=== PATIENT | male | born 1935 | race African-American/Black ===

== ENCOUNTER 2017-01-03 15:20 | Inpatient (IN) ==
[2017-01-03] MEDS ORDERED: ATROPINE 0.4 MG/1 ML VIAL ONE (16:18)
[2017-01-03] MEDS ORDERED: NALOXONE 0.4 MG/ML VIAL ONE (16:20)
[2017-01-03 16:42] LABS: Basophils % 0.6 % (0.0-0.8); Eosinophils # 0.1 10*3/uL (0.0-0.87); Eosinophils % 1.6 % (0.00-10.9); Hematocrit 44.1 VOL% (42.0-52.0); Hemoglobin 15.1 GM/DL (14.0-18.0); Immature Granulocytes % 0.3 %; Immature Granulocytes Absolute 0.01 #; Lymphocytes # 0.7 10*3/uL (1.4-4.0); Lymphocytes % 20.6 % (21.2-54.2); Mean Corpuscular HGB Conc 34.2 GM/DL (32-36); Mean Corpuscular Hemoglobin 32 PG (27-34); Mean Corpuscular Volume 92.6 FL (87-102); Mean Platelet Volume 10.4 FL (9.6-12.0); Monocytes # 0.3 10*3/uL (0.11-0.8); Monocytes % 9.7 % (1.7-12.7); Neutrophils # 2.2 10*3/uL (1.4-7.4); Neutrophils % 67.2 % (38.7-73.9); Platelet Count 155 T/CUMM (130-400); Red Blood Count 4.76 MC/CUMM (3.8-5.5); Red Cell Distribution Width 12.4 % (9.3-17.3); White Blood Count 3.2 T/CUMM (4-12)
[2017-01-03 16:53] LABS: INR 1.1; PT Patient Result 11.4 SECS; Partial Thromboplastin Time 28.2 SECS (0-40)
[2017-01-03 17:03] LABS: Alanine Aminotransferase 14 U/L (16-61); Albumin 3.2 G/DL (3.4-5.0); Alkaline Phosphatase 98 U/L (45-117); Aspartate Amino Transferase 17 U/L (0-37); Blood Urea Nitrogen 15 MG/DL (7-18); Calcium 9.2 MG/DL (8.5-10.1); Glucose 103 MG/DL (74-106); Osmolality,Calculated 277.5 MOS/KG (273-304); Potassium 3.9 MMOL/L (3.5-5.1); Sodium 139 MMOL/L (136-145)
[2017-01-03] MEDS ORDERED: ONDANSETRON 4 MG/2 ML VIAL IV PRN (20:49)
[2017-01-03] MEDS ORDERED: NIFEdipine 10 MG CAPSULE PO PRN (20:49)
[2017-01-03] MEDS: ENOXAPARIN 40 MG/0.4 ML SYRINGE SUBCUT SCH (21:10)
[2017-01-03 21:42] LABS: Apearance,Urine CLEAR (Clear); Bilirubin,Urine Negative (Negative); Blood, Urine Small mg/dL (Negative); Glucose,Urine (UA) Negative (Negative); Ketones,Urine Negative (Negative); Mucus,Urine Occasional /LPF (Occasional); Nitrite,Urine Negative (Negative); Protein,Urine Negative; RBC,Urine <1 /HPF (0-4); Urine Color Yellow (Yellow); WBC,Urine 1 /HPF (0-6)
[2017-01-03 21:59] LABS: Barbiturates Screen,Urine Negative (Negative); Benzodiazepines Screen,Urine Negative (Negative); Cannabinoid Screen,Urine Negative (Negative); Opiate Screen,Urine Negative (Negative); Phencyclidine Screen,Urine Negative (Negative)
[2017-01-03] MEDS: ALBUTEROL 2.5 MG/3 ML NEB RESP TX SCH ×2 (23:44)
[2017-01-04] MEDS: ALBUTEROL 2.5 MG/3 ML NEB RESP TX SCH ×4 (04:01→15:57)
[2017-01-04 06:41] LABS: Basophils % 0.4 % (0.0-0.8); Eosinophils # 0.1 10*3/uL (0.0-0.87); Eosinophils % 3.6 % (0.00-10.9); Hematocrit 38.6 VOL% (42.0-52.0); Hemoglobin 13.3 GM/DL (14.0-18.0); Lymphocytes # 0.6 10*3/uL (1.4-4.0); Lymphocytes % 24.7 % (21.2-54.2); Mean Corpuscular HGB Conc 34.5 GM/DL (32-36); Mean Corpuscular Hemoglobin 32 PG (27-34); Mean Corpuscular Volume 92.6 FL (87-102); Mean Platelet Volume 10.8 FL (9.6-12.0); Monocytes # 0.3 10*3/uL (0.11-0.8); Monocytes % 12.6 % (1.7-12.7); Neutrophils # 1.5 10*3/uL (1.4-7.4); Neutrophils % 58.7 % (38.7-73.9); Platelet Count 129 T/CUMM (130-400); Red Blood Count 4.17 MC/CUMM (3.8-5.5); Red Cell Distribution Width 12.4 % (9.3-17.3); White Blood Count 2.5 T/CUMM (4-12)
[2017-01-04 07:56] LABS: Blood Urea Nitrogen 14 MG/DL (7-18); Calcium 8.7 MG/DL (8.5-10.1); Glucose 77 MG/DL (74-106); Magnesium 2.1 MG/DL (1.8-2.4); Osmolality,Calculated 278.4 MOS/KG (273-304); Potassium 4.2 MMOL/L (3.5-5.1); Sodium 140 MMOL/L (136-145); Troponin I Only < 0.015 NG/ML (0.00-0.045)
[2017-01-04] MEDS: PANTOPRAZOLE 40 MG TABLET PO SCH (08:48)
[2017-01-04 08:58] LABS: Troponin I Only < 0.015 NG/ML (0.00-0.045)
[2017-01-04] MEDS: SODIUM CHLORIDE 0.9% 1,000 ML IV SCH ×2 (08:58→13:55)
[2017-01-04 09:00] LABS: Risk Ratio 4.8; Thyroid Stimulating Hormone 1.65 uIU/ml (0.358-3.74); VLDL CHOLESTEROL 13.2 MG/DL
[2017-01-04] MEDS ORDERED: LORazepam 2 MG/1 ML VIAL IM ONE (09:31)
[2017-01-04] MEDS: hydrALAZINE 25 MG TABLET PO SCH ×2 (10:37→21:19)
[2017-01-04 12:52] LABS: Troponin I Only < 0.015 NG/ML (0.00-0.045)
[2017-01-04 15:39] LABS: Troponin I Only < 0.015 NG/ML (0.00-0.045)
[2017-01-04] MEDS: ENOXAPARIN 40 MG/0.4 ML SYRINGE SUBCUT SCH (21:19)
[2017-01-04] MEDS: HALOPERIDOL 5 MG/ML AMP IV PRN (22:49)
[2017-01-05] MEDS: HALOPERIDOL 5 MG/ML AMP IV PRN ×2 (03:30→22:25)
[2017-01-05 05:07] LABS: Basophils % 0.6 % (0.0-0.8); Eosinophils # 0.1 10*3/uL (0.0-0.87); Eosinophils % 3.5 % (0.00-10.9); Hematocrit 37.4 VOL% (42.0-52.0); Hemoglobin 12.9 GM/DL (14.0-18.0); Lymphocytes # 0.7 10*3/uL (1.4-4.0); Lymphocytes % 21.1 % (21.2-54.2); Mean Corpuscular HGB Conc 34.5 GM/DL (32-36); Mean Corpuscular Hemoglobin 32 PG (27-34); Mean Corpuscular Volume 92.1 FL (87-102); Mean Platelet Volume 10.4 FL (9.6-12.0); Monocytes # 0.4 10*3/uL (0.11-0.8); Monocytes % 12.6 % (1.7-12.7); Neutrophils % 62.2 % (38.7-73.9); Platelet Count 143 T/CUMM (130-400); Red Blood Count 4.06 MC/CUMM (3.8-5.5); Red Cell Distribution Width 12.6 % (9.3-17.3); White Blood Count 3.2 T/CUMM (4-12)
[2017-01-05 05:42] LABS: Calcium 8.5 MG/DL (8.5-10.1); Osmolality,Calculated 277.4 MOS/KG (273-304); Potassium 3.8 MMOL/L (3.5-5.1)
[2017-01-05] MEDS ORDERED: diphenhydrAMINE CAP 25 MG CAPSULE PO ONE (06:00)
[2017-01-05] MEDS ORDERED: DIAZEPAM 5 MG TABLET PO ONE (06:00)
[2017-01-05] MEDS: diphenhydrAMINE CAP 25 MG CAPSULE PO ONE ×2 (07:48→10:20)
[2017-01-05] MEDS: DIAZEPAM 5 MG TABLET PO ONE ×2 (07:48→10:19)
[2017-01-05] MEDS: PANTOPRAZOLE 40 MG TABLET PO SCH ×2 (07:49→10:19)
[2017-01-05] MEDS: hydrALAZINE 25 MG TABLET PO SCH ×3 (07:49→22:25)
[2017-01-05] MEDS: SODIUM CHLORIDE 0.9% 1,000 ML IV SCH (07:51)
[2017-01-05] MEDS ORDERED: ceFAZolin 1,000 MG VIAL IRRIG ONE (08:00)
[2017-01-05] MEDS ORDERED: LIDOCAINE 1% 20 ML VIAL ONE (11:20)
[2017-01-05] MEDS ORDERED: ceFAZolin 1,000 MG VIAL ONE (11:21)
[2017-01-05] MEDS ORDERED: TISSUE ADHESIVE 1 EACH APPLICATOR TOP ONE (11:57)
[2017-01-05] MEDS ORDERED: PROPOFOL 200 MG/20 ML VIAL IV ONE (13:03)
[2017-01-05] MEDS ORDERED: MIDAZOLAM 2 MG/2 ML VIAL ONE (13:03)
[2017-01-05] MEDS ORDERED: fentaNYL 100 MCG/2 ML VIAL ONE (13:03)
[2017-01-06 06:40] LABS: Basophils % 0.5 % (0.0-0.8); Eosinophils # 0.2 10*3/uL (0.0-0.87); Eosinophils % 3.5 % (0.00-10.9); Hematocrit 38.5 VOL% (42.0-52.0); Hemoglobin 13.6 GM/DL (14.0-18.0); Immature Granulocytes % 0.5 %; Immature Granulocytes Absolute 0.02 #; Lymphocytes # 0.7 10*3/uL (1.4-4.0); Lymphocytes % 16.9 % (21.2-54.2); Mean Corpuscular HGB Conc 35.3 GM/DL (32-36); Mean Corpuscular Hemoglobin 32 PG (27-34); Mean Corpuscular Volume 89.7 FL (87-102); Mean Platelet Volume 11.7 FL (9.6-12.0); Monocytes # 0.6 10*3/uL (0.11-0.8); Monocytes % 13.7 % (1.7-12.7); NRBC # 0.07 10*3/uL; Neutrophils # 2.8 10*3/uL (1.4-7.4); Neutrophils % 64.9 % (38.7-73.9); Platelet Count 112 T/CUMM (130-400); Red Blood Count 4.29 MC/CUMM (3.8-5.5); Red Cell Distribution Width 12.6 % (9.3-17.3); White Blood Count 4.3 T/CUMM (4-12)
[2017-01-06 06:46] LABS: Eosinophils 6 % (0-10); Hypochromasia Slight; Lymphocytes 19 % (20-55); Platelet Estimate Decreased; Segmented Neutrophils 62 % (50-85); Total Cells Counted 100
[2017-01-06 06:51] LABS: Calcium 8.2 MG/DL (8.5-10.1); Osmolality,Calculated 272.7 MOS/KG (273-304); Potassium 4.6 MMOL/L (3.5-5.1)
[2017-01-06] MEDS: hydrALAZINE 25 MG TABLET PO SCH (08:48)
[2017-01-06] MEDS: PANTOPRAZOLE 40 MG TABLET PO SCH (08:48)
[2017-01-06] MEDS ORDERED: amLODIPine 5 MG TABLET PO SCH (09:00)
[2017-01-06 11:53] VITALS: BP 128/76
== END 2017-01-06 14:26 | DRG 42 ==
LOC: N.ED 15:20 → N.EDINP 18:12 → N.TELEN 19:04
PROVIDERS: ADMIT Internal Medicine; ATTEND Internal Medicine

== ENCOUNTER 2017-01-08 10:55 | Inpatient (IN) ==
[2017-01-08 12:43] LABS: Basophils % 0.2 % (0.0-0.8); Eosinophils % 0.6 % (0.00-10.9); Hematocrit 37.4 VOL% (42.0-52.0); Hemoglobin 13.1 GM/DL (14.0-18.0); Immature Granulocytes % 0.2 %; Immature Granulocytes Absolute 0.01 #; Lymphocytes # 0.4 10*3/uL (1.4-4.0); Lymphocytes % 8.2 % (21.2-54.2); Mean Corpuscular Hemoglobin 32 PG (27-34); Mean Corpuscular Volume 90.1 FL (87-102); Mean Platelet Volume 10.3 FL (9.6-12.0); Monocytes # 0.5 10*3/uL (0.11-0.8); Monocytes % 10.3 % (1.7-12.7); Neutrophils # 4.2 10*3/uL (1.4-7.4); Neutrophils % 80.5 % (38.7-73.9); Platelet Count 141 T/CUMM (130-400); Red Blood Count 4.15 MC/CUMM (3.8-5.5); Red Cell Distribution Width 12.6 % (9.3-17.3); White Blood Count 5.2 T/CUMM (4-12)
[2017-01-08 13:08] LABS: Ammonia < 10 UMOL/L (11-32)
[2017-01-08 13:23] LABS: Alanine Aminotransferase 12 U/L (16-61); Albumin 3.1 G/DL (3.4-5.0); Alkaline Phosphatase 99 U/L (45-117); Aspartate Amino Transferase 17 U/L (0-37); Blood Urea Nitrogen 17 MG/DL (7-18); Calcium 8.9 MG/DL (8.5-10.1); Glucose 94 MG/DL (74-106); Osmolality,Calculated 282.3 MOS/KG (273-304); Potassium 3.9 MMOL/L (3.5-5.1); Sodium 141 MMOL/L (136-145); Total Protein 7.6 G/DL (6.4-8.3)
[2017-01-08] MEDS ORDERED: MORPHINE 2 MG/1 ML SYRINGE IV PRN (14:49)
[2017-01-08] MEDS ORDERED: ONDANSETRON 4 MG/2 ML VIAL IV PRN (14:49)
[2017-01-08] MEDS: DEXTROSE 5% NACL 0.45% 1,000 ML IV SCH (15:45)
[2017-01-08 16:17] LABS: Apearance,Urine CLOUDY (Clear); Bilirubin,Urine Negative (Negative); Blood, Urine Small mg/dL (Negative); Glucose,Urine (UA) Negative (Negative); Ketones,Urine 5 mg/dL (Negative); Mucus,Urine Many /LPF (Occasional); Nitrite,Urine Negative (Negative); Protein,Urine 30 MG/DL; RBC,Urine 17 /HPF (0-4); Squamous Epithelial Cell,Urine Occasional /HPF (0-10); Urine Specific Gravity 1.016 (1.001-1.035); WBC,Urine 45 /HPF (0-6)
[2017-01-08 16:18] LABS: Urine Color Dark yellow (Yellow)
[2017-01-08] MEDS: DOCUSATE SODIUM 100 MG CAPSULE PO SCH (23:29)
[2017-01-09] MEDS: DEXTROSE 5% NACL 0.45% 1,000 ML IV SCH ×2 (05:00→17:50)
[2017-01-09 05:13] LABS: Basophils % 0.1 % (0.0-0.8); Eosinophils # 0.1 10*3/uL (0.0-0.87); Eosinophils % 1.9 % (0.00-10.9); Hemoglobin 13.5 GM/DL (14.0-18.0); Immature Granulocytes % 0.3 %; Immature Granulocytes Absolute 0.02 #; Lymphocytes # 0.6 10*3/uL (1.4-4.0); Lymphocytes % 8.7 % (21.2-54.2); Mean Corpuscular HGB Conc 34.6 GM/DL (32-36); Mean Corpuscular Hemoglobin 32 PG (27-34); Mean Corpuscular Volume 91.3 FL (87-102); Mean Platelet Volume 10.3 FL (9.6-12.0); Monocytes # 0.6 10*3/uL (0.11-0.8); Monocytes % 9.1 % (1.7-12.7); Neutrophils # 5.5 10*3/uL (1.4-7.4); Neutrophils % 79.9 % (38.7-73.9); Platelet Count 134 T/CUMM (130-400); Red Blood Count 4.27 MC/CUMM (3.8-5.5); Red Cell Distribution Width 12.7 % (9.3-17.3); White Blood Count 6.9 T/CUMM (4-12)
[2017-01-09 05:40] LABS: Calcium 8.8 MG/DL (8.5-10.1); Osmolality,Calculated 279.3 MOS/KG (273-304); Potassium 3.7 MMOL/L (3.5-5.1)
[2017-01-09] MEDS: DOCUSATE SODIUM 100 MG CAPSULE PO SCH (08:46)
[2017-01-09] MEDS: hydrALAZINE 20 MG/1 ML VIAL IV SCH ×2 (15:15→21:24)
[2017-01-10] MEDS ORDERED: DEXTROSE 50% 25 GM/50 ML VIAL IV PRN (10:24)
[2017-01-10] MEDS ORDERED: GLUCAGON 1 MG VIAL IM PRN (10:24)
[2017-01-10 11:13] LABS: Hematocrit 38.5 VOL% (42.0-52.0); Hemoglobin 14.1 GM/DL (14.0-18.0)
[2017-01-10] MEDS: DOCUSATE SODIUM 100 MG CAPSULE PO SCH ×2 (11:30→22:51)
[2017-01-10] MEDS: hydrALAZINE 20 MG/1 ML VIAL IV SCH ×3 (11:30→21:37)
[2017-01-10] MEDS: DEXTROSE 5% NACL 0.45% 1,000 ML IV SCH ×2 (11:30→22:51)
[2017-01-10] MEDS: APIXABAN 5 MG TABLET PO SCH (11:31)
[2017-01-10] MEDS: INSULIN REGULAR 100 UNIT/ML SUBCUT SCH ×2 (12:28→17:55)
[2017-01-10 18:46] LABS: Hematocrit 35.4 VOL% (42.0-52.0); Hemoglobin 12.3 GM/DL (14.0-18.0)
[2017-01-11] MEDS: INSULIN REGULAR 100 UNIT/ML SUBCUT SCH ×4 (01:08→20:44)
[2017-01-11] MEDS: hydrALAZINE 20 MG/1 ML VIAL IV SCH ×2 (03:05→08:47)
[2017-01-11 03:53] LABS: Hematocrit 33.2 VOL% (42.0-52.0); Hemoglobin 11.6 GM/DL (14.0-18.0)
[2017-01-11 04:25] LABS: Magnesium 1.9 MG/DL (1.8-2.4); Osmolality,Calculated 277.7 MOS/KG (273-304); Phosphorous 2.8 MG/DL (2.5-4.9); Potassium 3.5 MMOL/L (3.5-5.1); Prealbumin 9.6 MG/DL (20-40)
[2017-01-11] MEDS: DOCUSATE SODIUM 100 MG CAPSULE PO SCH ×2 (08:46→23:58)
[2017-01-11] MEDS ORDERED: APIXABAN 5 MG TABLET PO SCH (09:00)
[2017-01-11] MEDS ORDERED: amLODIPine 5 MG TABLET PO SCH (11:30)
[2017-01-11] MEDS: DEXTROSE 5% NACL 0.45% 1,000 ML IV SCH (11:47)
[2017-01-11] MEDS: hydrALAZINE 25 MG TABLET PO SCH ×2 (11:47→23:58)
[2017-01-11 12:07] LABS: Hematocrit 35.5 VOL% (42.0-52.0); Hemoglobin 12.4 GM/DL (14.0-18.0)
[2017-01-11] MEDS ORDERED: DEXTROSE 5% NACL 0.45% 1,000 ML IV SCH (14:00)
[2017-01-11 18:55] LABS: Hematocrit 35.1 VOL% (42.0-52.0); Hemoglobin 12.2 GM/DL (14.0-18.0)
[2017-01-11] MEDS: ENOXAPARIN 60 MG/0.6 ML SYRINGE SUBCUT SCH (23:58)
[2017-01-12] MEDS: DEXTROSE 5% NACL 0.45% 1,000 ML IV SCH ×2 (02:00→15:31)
[2017-01-12] MEDS: INSULIN REGULAR 100 UNIT/ML SUBCUT SCH ×4 (02:03→17:57)
[2017-01-12 05:43] LABS: Hematocrit 35.5 VOL% (42.0-52.0); Hemoglobin 12.3 GM/DL (14.0-18.0)
[2017-01-12 05:51] LABS: Basophils % 0.1 % (0.0-0.8); Eosinophils # 0.1 10*3/uL (0.0-0.87); Eosinophils % 1.3 % (0.00-10.9); Hematocrit 34.6 VOL% (42.0-52.0); Hemoglobin 12.3 GM/DL (14.0-18.0); Immature Granulocytes % 0.5 %; Immature Granulocytes Absolute 0.04 #; Lymphocytes # 0.6 10*3/uL (1.4-4.0); Lymphocytes % 7.4 % (21.2-54.2); Mean Corpuscular HGB Conc 35.5 GM/DL (32-36); Mean Corpuscular Hemoglobin 32 PG (27-34); Mean Corpuscular Volume 90.1 FL (87-102); Mean Platelet Volume 10.5 FL (9.6-12.0); Monocytes # 0.9 10*3/uL (0.11-0.8); Monocytes % 11.7 % (1.7-12.7); Platelet Count 143 T/CUMM (130-400); Red Blood Count 3.84 MC/CUMM (3.8-5.5); Red Cell Distribution Width 12.7 % (9.3-17.3); White Blood Count 7.6 T/CUMM (4-12)
[2017-01-12 06:14] LABS: Calcium 8.2 MG/DL (8.5-10.1); Osmolality,Calculated 274.8 MOS/KG (273-304); Potassium 3.8 MMOL/L (3.5-5.1)
[2017-01-12 10:28] LABS: Hematocrit 35.3 VOL% (42.0-52.0); Hemoglobin 12.5 GM/DL (14.0-18.0)
[2017-01-12] MEDS: DOCUSATE SODIUM 100 MG CAPSULE PO SCH ×2 (11:17→22:02)
[2017-01-12] MEDS: amLODIPine 10 MG TABLET PO SCH (11:18)
[2017-01-12] MEDS: hydrALAZINE 25 MG TABLET PO SCH ×2 (11:19→22:02)
[2017-01-12 16:40] LABS: Apearance,Urine CLEAR (Clear); Bilirubin,Urine Negative (Negative); Blood, Urine Large mg/dL (Negative); Glucose,Urine (UA) Negative (Negative); Ketones,Urine Negative (Negative); Mucus,Urine Occasional /LPF (Occasional); Nitrite,Urine Negative (Negative); Protein,Urine Negative; RBC,Urine 143 /HPF (0-4); Squamous Epithelial Cell,Urine Occasional /HPF (0-10); Urine Color Yellow (Yellow); Urine Specific Gravity 1.006 (1.001-1.035); Urine Urobilinogen < 2.0 EU/DL (0.2-1.0); WBC,Urine 1 /HPF (0-6)
[2017-01-12 18:34] LABS: Hematocrit 33.9 VOL% (42.0-52.0); Hemoglobin 11.9 GM/DL (14.0-18.0)
[2017-01-13] MEDS: INSULIN REGULAR 100 UNIT/ML SUBCUT SCH ×5 (00:28→23:36)
[2017-01-13] MEDS: DEXTROSE 5% NACL 0.45% 1,000 ML IV SCH ×2 (06:54→15:32)
[2017-01-13 07:53] LABS: Basophils % 0.3 % (0.0-0.8); Eosinophils # 0.2 10*3/uL (0.0-0.87); Eosinophils % 2.7 % (0.00-10.9); Hematocrit 33.7 VOL% (42.0-52.0); Hemoglobin 11.7 GM/DL (14.0-18.0); Immature Granulocytes % 0.5 %; Immature Granulocytes Absolute 0.03 #; Lymphocytes # 0.6 10*3/uL (1.4-4.0); Lymphocytes % 9.9 % (21.2-54.2); Mean Corpuscular HGB Conc 34.7 GM/DL (32-36); Mean Corpuscular Hemoglobin 32 PG (27-34); Mean Corpuscular Volume 90.8 FL (87-102); Mean Platelet Volume 10.7 FL (9.6-12.0); Monocytes # 0.8 10*3/uL (0.11-0.8); Monocytes % 13.4 % (1.7-12.7); Neutrophils # 4.6 10*3/uL (1.4-7.4); Neutrophils % 73.2 % (38.7-73.9); Platelet Count 151 T/CUMM (130-400); Red Blood Count 3.71 MC/CUMM (3.8-5.5); Red Cell Distribution Width 12.6 % (9.3-17.3); White Blood Count 6.3 T/CUMM (4-12)
[2017-01-13 08:00] LABS: INR 1.1; PT Patient Result 11.4 SECS
[2017-01-13 08:20] LABS: Calcium 8.1 MG/DL (8.5-10.1); Osmolality,Calculated 274.5 MOS/KG (273-304); Potassium 3.5 MMOL/L (3.5-5.1)
[2017-01-13] MEDS: amLODIPine 10 MG TABLET PO SCH (10:58)
[2017-01-13] MEDS: hydrALAZINE 25 MG TABLET PO SCH ×2 (10:58→20:00)
[2017-01-13] MEDS: DOCUSATE SODIUM 100 MG CAPSULE PO SCH ×2 (10:58→20:00)
[2017-01-13] MEDS ORDERED: ceFAZolin 1,000 MG in SYRINGE 1 EACH IV ONE (11:15)
[2017-01-13] MEDS ORDERED: PROPOFOL 200 MG/20 ML VIAL IV ONE (14:04)
[2017-01-13] MEDS ORDERED: LIDOCAINE 2% 5 ML VIAL ONE (14:04)
[2017-01-13] MEDS ORDERED: TUBERCULIN SKIN TEST 0.1 ML SYRINGE INTRADERM ONE (15:00)
[2017-01-14] MEDS: DEXTROSE 5% NACL 0.45% 1,000 ML IV SCH ×3 (03:16→19:06)
[2017-01-14] MEDS: INSULIN REGULAR 100 UNIT/ML SUBCUT SCH ×3 (06:16→18:42)
[2017-01-14] MEDS: DOCUSATE SODIUM 100 MG CAPSULE PO SCH ×2 (14:17→21:51)
[2017-01-14] MEDS: amLODIPine 10 MG TABLET PO SCH (14:17)
[2017-01-14] MEDS: hydrALAZINE 25 MG TABLET PO SCH ×2 (14:17→21:51)
[2017-01-15] MEDS: INSULIN REGULAR 100 UNIT/ML SUBCUT SCH ×4 (00:53→17:47)
[2017-01-15] MEDS: DOCUSATE SODIUM 100 MG CAPSULE PO SCH ×2 (08:16→21:48)
[2017-01-15] MEDS: hydrALAZINE 25 MG TABLET PO SCH ×2 (09:02→21:40)
[2017-01-15] MEDS: DEXTROSE 5% NACL 0.45% 1,000 ML IV SCH ×2 (09:02→15:12)
[2017-01-15] MEDS: amLODIPine 10 MG TABLET PO SCH (09:02)
[2017-01-15] MEDS: ENOXAPARIN 60 MG/0.6 ML SYRINGE SUBCUT SCH (22:05)
[2017-01-16] MEDS: INSULIN REGULAR 100 UNIT/ML SUBCUT SCH ×3 (00:33→15:02)
[2017-01-16 06:43] LABS: Magnesium 2.2 MG/DL (1.8-2.4); Phosphorous 3.1 MG/DL (2.5-4.9); Prealbumin 10.2 MG/DL (20-40)
[2017-01-16] MEDS: hydrALAZINE 25 MG TABLET PO SCH ×2 (08:32→21:49)
[2017-01-16] MEDS: DOCUSATE SODIUM 100 MG CAPSULE PO SCH ×2 (08:32→21:48)
[2017-01-16] MEDS: amLODIPine 10 MG TABLET PO SCH (08:32)
[2017-01-16] MEDS: DEXTROSE 5% NACL 0.45% 1,000 ML IV SCH ×2 (08:34→15:07)
[2017-01-16] MEDS: levETIRAcetam LIQUID 100 MG/ML 30 ML/BOTTLE PER TUBE SCH ×2 (15:03→21:50)
[2017-01-16] MEDS: ENOXAPARIN 60 MG/0.6 ML SYRINGE SUBCUT SCH (15:05)
[2017-01-16] MEDS: APIXABAN 5 MG TABLET PER TUBE SCH ×2 (15:07→21:48)
[2017-01-17] MEDS: amLODIPine 10 MG TABLET PO SCH (09:22)
[2017-01-17] MEDS: levETIRAcetam LIQUID 100 MG/ML 30 ML/BOTTLE PER TUBE SCH (09:22)
[2017-01-17] MEDS: DOCUSATE SODIUM 100 MG CAPSULE PO SCH (09:22)
[2017-01-17] MEDS: APIXABAN 5 MG TABLET PER TUBE SCH (09:22)
[2017-01-17] MEDS: hydrALAZINE 25 MG TABLET PO SCH (09:22)
[2017-01-17 14:53] VITALS: BP 137/69
== END 2017-01-17 14:00 | DRG 65 ==
LOC: EDUNIT# → N.ED 10:55 → SUATTDRO 14:49 → N.EDINP 14:49 → N.2E 15:21 → N.CC 01-10 15:09 → N.4E 01-12 16:45
PROVIDERS: ADMIT Family Medicine; ATTEND Internal Medicine
PROC: EGDWPEG (ICD-10-PCS; 2017-01-13 11:35)

== ENCOUNTER 2017-03-12 04:46 | Inpatient (IN) ==
[2017-03-12] MEDS ORDERED: CEFEPIME 2,000 MG in SODIUM CHLORIDE 0.9% 100 ML IV STA (05:34)
[2017-03-12] MEDS ORDERED: SODIUM CHLORIDE 0.9% 1,000 ML IV STA (05:34)
[2017-03-12] MEDS ORDERED: VANCOMYCIN INJ 1,000 MG in SODIUM CHLORIDE 0.9% 250 ML IV STA (05:34)
[2017-03-12 06:11] LABS: Basophils % 0.2 % (0.0-0.8); Eosinophils % 0.4 % (0.00-10.9); Hematocrit 42.3 VOL% (42.0-52.0); Hemoglobin 13.7 GM/DL (14.0-18.0); Immature Granulocytes % 0.4 %; Immature Granulocytes Absolute 0.02 #; Lymphocytes # 0.6 10*3/uL (1.4-4.0); Lymphocytes % 12.4 % (21.2-54.2); Mean Corpuscular HGB Conc 32.4 GM/DL (32-36); Mean Corpuscular Hemoglobin 31 PG (27-34); Mean Corpuscular Volume 94.2 FL (87-102); Mean Platelet Volume 10.6 FL (9.6-12.0); Monocytes # 0.9 10*3/uL (0.11-0.8); Neutrophils # 3.1 10*3/uL (1.4-7.4); Neutrophils % 67.6 % (38.7-73.9); Platelet Count 162 T/CUMM (130-400); Red Blood Count 4.49 MC/CUMM (3.8-5.5); Red Cell Distribution Width 14.5 % (9.3-17.3); White Blood Count 4.5 T/CUMM (4-12)
[2017-03-12] MEDS ORDERED: VANCOMYCIN 1,000 MG VIAL ONE (06:23)
[2017-03-12] MEDS ORDERED: CEFEPIME 2,000 MG VIAL ONE (06:23)
[2017-03-12 06:45] LABS: Albumin 2.3 G/DL (3.4-5.0); Bilirubin,Total 0.4 MG/DL (0.2-1.0); Calcium 8.2 MG/DL (8.5-10.1); Osmolality,Calculated 278.5 MOS/KG (273-304); Potassium 4.1 MMOL/L (3.5-5.1)
[2017-03-12 06:47] LABS: Lactic Acid 1.2 MMOL/L (0.4-2.0)
[2017-03-12 06:52] LABS: Amorphous Crystals,Urine Many /HPF (Few); Apearance,Urine CLOUDY (Clear); Bacteria,Urine Many /HPF (Few); Bilirubin,Urine Negative (Negative); Blood, Urine Small mg/dL (Negative); Glucose,Urine (UA) Negative (Negative); Ketones,Urine Negative (Negative); Mucus,Urine Many /LPF (Occasional); Nitrite,Urine Negative (Negative); Protein,Urine 30 MG/DL; RBC,Urine 60 /HPF (0-4); Urine Color Amber (Yellow); Urine Specific Gravity 1.016 (1.001-1.035); WBC,Urine 392 /HPF (0-6)
[2017-03-12 07:15] LABS: Hypochromasia 2+; Lymphocytes 7 % (20-55); Microcytosis 2+; Platelet Estimate Adequate; Segmented Neutrophils 77 % (50-85); Total Cells Counted 100
[2017-03-12] MEDS ORDERED: ONDANSETRON 4 MG/2 ML VIAL IV PRN (07:56)
[2017-03-12] MEDS ORDERED: PANTOPRAZOLE 40 MG TABLET PO SCH (10:45)
[2017-03-12] MEDS: ALBUTEROL 2.5 MG/3 ML NEB RESP TX SCH ×4 (11:22→23:55)
[2017-03-12] MEDS: LEVOFLOXACIN INJ 750 MG in PREMIX 1 EACH IV SCH (11:44)
[2017-03-12] MEDS: hydrALAZINE 25 MG TABLET PEG SCH ×2 (11:47→21:30)
[2017-03-12] MEDS: DOCUSATE SODIUM 100 MG CAPSULE PEG SCH ×2 (11:47→21:30)
[2017-03-12] MEDS: amLODIPine 10 MG TABLET PEG SCH (11:47)
[2017-03-12] MEDS: APIXABAN 5 MG TABLET PER TUBE SCH ×2 (11:47→21:30)
[2017-03-12] MEDS: PANTOPRAZOLE 40 MG TABLET PO SCH (11:48)
[2017-03-12] MEDS: ZINC OXIDE PASTE 113 GM TUBE TOP SCH ×2 (11:48→21:30)
[2017-03-12 12:09] LABS: Barbiturates Screen,Urine Negative (Negative); Benzodiazepines Screen,Urine Negative (Negative); Cannabinoid Screen,Urine Negative (Negative); Opiate Screen,Urine Positive (Negative); Phencyclidine Screen,Urine Negative (Negative)
[2017-03-12] MEDS: PIPERACILLIN/TAZOBACTAM 3,375 MG in SODIUM CHLORIDE 0.9% 100 ML IV SCH ×2 (14:38→21:33)
[2017-03-12] MEDS: levETIRAcetam LIQUID 100 MG/ML 30 ML/BOTTLE PER TUBE SCH ×2 (15:00→21:30)
[2017-03-13] MEDS: ACETAMINOPHEN 325 MG TABLET PO PRN ×2 (01:06→21:20)
[2017-03-13] MEDS: ALBUTEROL 2.5 MG/3 ML NEB RESP TX SCH ×6 (03:20→23:42)
[2017-03-13] MEDS: PIPERACILLIN/TAZOBACTAM 3,375 MG in SODIUM CHLORIDE 0.9% 100 ML IV SCH ×3 (06:38→23:51)
[2017-03-13 06:48] LABS: Basophils % 0.4 % (0.0-0.8); Eosinophils % 0.2 % (0.00-10.9); Hematocrit 39.8 VOL% (42.0-52.0); Hemoglobin 12.4 GM/DL (14.0-18.0); Immature Granulocytes % 0.4 %; Immature Granulocytes Absolute 0.02 #; Lymphocytes # 0.6 10*3/uL (1.4-4.0); Lymphocytes % 12.4 % (21.2-54.2); Mean Corpuscular HGB Conc 31.2 GM/DL (32-36); Mean Corpuscular Hemoglobin 31 PG (27-34); Mean Corpuscular Volume 98.8 FL (87-102); Mean Platelet Volume 12.1 FL (9.6-12.0); Monocytes # 0.8 10*3/uL (0.11-0.8); Monocytes % 16.1 % (1.7-12.7); Neutrophils # 3.7 10*3/uL (1.4-7.4); Neutrophils % 70.5 % (38.7-73.9); Platelet Count 100 T/CUMM (130-400); Red Blood Count 4.03 MC/CUMM (3.8-5.5); Red Cell Distribution Width 14.7 % (9.3-17.3); White Blood Count 5.2 T/CUMM (4-12)
[2017-03-13 07:22] LABS: Band Neutrophils 3 % (0-10); Hypochromasia 1+; Lymphocytes 13 % (20-55); Segmented Neutrophils 72 % (50-85); Total Cells Counted 100
[2017-03-13 07:23] LABS: Microcytosis 1+
[2017-03-13 07:39] LABS: Osmolality,Calculated 284.4 MOS/KG (273-304); Potassium 3.9 MMOL/L (3.5-5.1); Risk Ratio 3.74; Thyroid Stimulating Hormone 1.79 uIU/ml (0.358-3.74); VLDL CHOLESTEROL 11.6 MG/DL
[2017-03-13] MEDS: ZINC OXIDE PASTE 113 GM TUBE TOP SCH ×2 (10:07→23:50)
[2017-03-13] MEDS: DOCUSATE SODIUM 100 MG CAPSULE PEG SCH ×2 (10:07→23:49)
[2017-03-13] MEDS: APIXABAN 5 MG TABLET PER TUBE SCH ×2 (10:07→23:49)
[2017-03-13] MEDS: PANTOPRAZOLE 40 MG TABLET PO SCH (10:07)
[2017-03-13] MEDS: LEVOFLOXACIN INJ 750 MG in PREMIX 1 EACH IV SCH (10:07)
[2017-03-13] MEDS: hydrALAZINE 25 MG TABLET PEG SCH ×2 (10:07→23:48)
[2017-03-13] MEDS: amLODIPine 10 MG TABLET PEG SCH (10:07)
[2017-03-13] MEDS: levETIRAcetam LIQUID 100 MG/ML 30 ML/BOTTLE PER TUBE SCH ×3 (10:09→23:50)
[2017-03-13] MEDS ORDERED: SKIN HEALING OINT (AQUAPHOR) 50 GM TUBE TOP PRN (16:25)
[2017-03-14] MEDS: ACETAMINOPHEN 325 MG TABLET PO PRN (01:58)
[2017-03-14] MEDS: ALBUTEROL 2.5 MG/3 ML NEB RESP TX SCH ×6 (03:50→23:27)
[2017-03-14 06:02] LABS: Basophils % 0.1 % (0.0-0.8); Hematocrit 36.8 VOL% (42.0-52.0); Hemoglobin 12.2 GM/DL (14.0-18.0); Immature Granulocytes % 0.4 %; Immature Granulocytes Absolute 0.04 #; Lymphocytes # 0.9 10*3/uL (1.4-4.0); Mean Corpuscular HGB Conc 33.2 GM/DL (32-36); Mean Corpuscular Hemoglobin 31 PG (27-34); Mean Corpuscular Volume 92.7 FL (87-102); Mean Platelet Volume 11.3 FL (9.6-12.0); Monocytes # 0.8 10*3/uL (0.11-0.8); Neutrophils # 7.2 10*3/uL (1.4-7.4); Neutrophils % 80.5 % (38.7-73.9); Platelet Count 146 T/CUMM (130-400); Red Blood Count 3.97 MC/CUMM (3.8-5.5); Red Cell Distribution Width 14.9 % (9.3-17.3)
[2017-03-14 06:26] LABS: Burr Cells Slight; Hypochromasia 1+; Microcytosis Slight; Platelet Estimate Normal
[2017-03-14 06:30] LABS: Osmolality,Calculated 288.1 MOS/KG (273-304); Potassium 3.5 MMOL/L (3.5-5.1)
[2017-03-14] MEDS: hydrALAZINE 25 MG TABLET PEG SCH ×2 (08:41→22:33)
[2017-03-14] MEDS: APIXABAN 5 MG TABLET PER TUBE SCH ×2 (08:41→22:33)
[2017-03-14] MEDS: DOCUSATE SODIUM 100 MG CAPSULE PEG SCH ×2 (08:41→22:36)
[2017-03-14] MEDS: amLODIPine 10 MG TABLET PEG SCH (08:41)
[2017-03-14] MEDS: PANTOPRAZOLE 40 MG TABLET PO SCH (08:42)
[2017-03-14] MEDS: LEVOFLOXACIN INJ 750 MG in PREMIX 1 EACH IV SCH (08:42)
[2017-03-14] MEDS: levETIRAcetam LIQUID 100 MG/ML 30 ML/BOTTLE PER TUBE SCH ×2 (08:44→22:35)
[2017-03-14] MEDS: ZINC OXIDE PASTE 113 GM TUBE TOP SCH ×2 (08:44→22:37)
[2017-03-14] MEDS: PIPERACILLIN/TAZOBACTAM 3,375 MG in SODIUM CHLORIDE 0.9% 100 ML IV SCH ×2 (10:37→17:06)
[2017-03-15] MEDS: PIPERACILLIN/TAZOBACTAM 3,375 MG in SODIUM CHLORIDE 0.9% 100 ML IV SCH ×3 (01:46→18:06)
[2017-03-15] MEDS: ALBUTEROL 2.5 MG/3 ML NEB RESP TX SCH ×6 (03:11→23:06)
[2017-03-15] MEDS: ACETAMINOPHEN 325 MG TABLET PO PRN ×2 (04:41→16:05)
[2017-03-15 06:24] LABS: Calcium 7.9 MG/DL (8.5-10.1); Osmolality,Calculated 284.3 MOS/KG (273-304); Potassium 4.1 MMOL/L (3.5-5.1)
[2017-03-15] MEDS: amLODIPine 10 MG TABLET PEG SCH (10:32)
[2017-03-15] MEDS: DOCUSATE SODIUM 100 MG CAPSULE PEG SCH ×2 (10:33→21:19)
[2017-03-15] MEDS: APIXABAN 5 MG TABLET PER TUBE SCH ×2 (10:33→21:19)
[2017-03-15] MEDS: PANTOPRAZOLE 40 MG TABLET PO SCH (10:33)
[2017-03-15] MEDS: levETIRAcetam LIQUID 100 MG/ML 30 ML/BOTTLE PER TUBE SCH ×2 (10:33→21:19)
[2017-03-15] MEDS: ZINC OXIDE PASTE 113 GM TUBE TOP SCH ×2 (10:33→21:21)
[2017-03-15] MEDS: hydrALAZINE 25 MG TABLET PEG SCH ×2 (10:33→21:19)
[2017-03-15] MEDS: LEVOFLOXACIN INJ 750 MG in PREMIX 1 EACH IV SCH (10:35)
[2017-03-16] MEDS: PIPERACILLIN/TAZOBACTAM 3,375 MG in SODIUM CHLORIDE 0.9% 100 ML IV SCH ×3 (01:47→17:33)
[2017-03-16] MEDS: ALBUTEROL 2.5 MG/3 ML NEB RESP TX SCH ×5 (03:21→20:00)
[2017-03-16 06:45] LABS: Calcium 8.1 MG/DL (8.5-10.1); Osmolality,Calculated 287.1 MOS/KG (273-304); Potassium 3.8 MMOL/L (3.5-5.1)
[2017-03-16 07:51] LABS: Magnesium 1.9 MG/DL (1.8-2.4); Prealbumin 9.6 MG/DL (20-40)
[2017-03-16] MEDS: LEVOFLOXACIN INJ 750 MG in PREMIX 1 EACH IV SCH (09:56)
[2017-03-16] MEDS: amLODIPine 10 MG TABLET PEG SCH (10:03)
[2017-03-16] MEDS: methylPREDNISolone SOD SUC 125 MG/2 ML VIAL IV SCH ×3 (10:03→21:59)
[2017-03-16] MEDS: APIXABAN 5 MG TABLET PER TUBE SCH ×2 (10:04→21:59)
[2017-03-16] MEDS: DOCUSATE SODIUM 100 MG CAPSULE PEG SCH ×2 (10:04→21:59)
[2017-03-16] MEDS: levETIRAcetam LIQUID 100 MG/ML 30 ML/BOTTLE PER TUBE SCH ×2 (10:05→22:01)
[2017-03-16] MEDS: ZINC OXIDE PASTE 113 GM TUBE TOP SCH ×2 (10:05→22:01)
[2017-03-16] MEDS: hydrALAZINE 25 MG TABLET PEG SCH ×2 (10:53→22:00)
[2017-03-17] MEDS: ALBUTEROL 2.5 MG/3 ML NEB RESP TX SCH ×6 (00:33→20:11)
[2017-03-17] MEDS: PIPERACILLIN/TAZOBACTAM 3,375 MG in SODIUM CHLORIDE 0.9% 100 ML IV SCH ×3 (03:15→17:50)
[2017-03-17] MEDS: methylPREDNISolone SOD SUC 125 MG/2 ML VIAL IV SCH ×4 (03:47→21:50)
[2017-03-17] MEDS ORDERED: FUROSEMIDE 20 MG/2 ML VIAL IV ONE (07:30)
[2017-03-17] MEDS ORDERED: VANCOMYCIN INJ 750 MG in SODIUM CHLORIDE 0.9% 150 ML IV ONE (08:00)
[2017-03-17] MEDS ORDERED: VANCOMYCIN INJ 750 MG in SODIUM CHLORIDE 0.9% 250 ML IV ONE (08:00)
[2017-03-17] MEDS: DOCUSATE SODIUM 100 MG CAPSULE PEG SCH ×2 (08:45→21:54)
[2017-03-17] MEDS: ZINC OXIDE PASTE 113 GM TUBE TOP SCH ×2 (09:11→21:55)
[2017-03-17] MEDS: APIXABAN 5 MG TABLET PER TUBE SCH ×2 (09:11→21:55)
[2017-03-17] MEDS: hydrALAZINE 25 MG TABLET PEG SCH ×2 (09:11→21:54)
[2017-03-17] MEDS: levETIRAcetam LIQUID 100 MG/ML 30 ML/BOTTLE PER TUBE SCH ×2 (09:12→21:54)
[2017-03-17] MEDS: amLODIPine 10 MG TABLET PEG SCH (09:13)
[2017-03-17] MEDS: LEVOFLOXACIN INJ 750 MG in PREMIX 1 EACH IV SCH (11:15)
[2017-03-18] MEDS: ALBUTEROL 2.5 MG/3 ML NEB RESP TX SCH ×5 (00:08→14:25)
[2017-03-18] MEDS: PIPERACILLIN/TAZOBACTAM 3,375 MG in SODIUM CHLORIDE 0.9% 100 ML IV SCH ×2 (02:55→11:55)
[2017-03-18] MEDS ORDERED: VANCOMYCIN INJ 750 MG in SODIUM CHLORIDE 0.9% 250 ML IV SCH (03:00)
[2017-03-18] MEDS: methylPREDNISolone SOD SUC 125 MG/2 ML VIAL IV SCH ×3 (03:15→15:12)
[2017-03-18 06:47] LABS: Basophils % 0.1 % (0.0-0.8); Hematocrit 34.9 VOL% (42.0-52.0); Hemoglobin 11.3 GM/DL (14.0-18.0); Immature Granulocytes % 0.8 %; Immature Granulocytes Absolute 0.12 #; Lymphocytes # 0.4 10*3/uL (1.4-4.0); Lymphocytes % 2.7 % (21.2-54.2); Mean Corpuscular HGB Conc 32.4 GM/DL (32-36); Mean Corpuscular Hemoglobin 30 PG (27-34); Mean Corpuscular Volume 93.1 FL (87-102); Mean Platelet Volume 11.1 FL (9.6-12.0); Monocytes # 0.3 10*3/uL (0.11-0.8); Monocytes % 2.2 % (1.7-12.7); Neutrophils # 13.9 10*3/uL (1.4-7.4); Neutrophils % 94.2 % (38.7-73.9); Platelet Count 170 T/CUMM (130-400); Red Blood Count 3.75 MC/CUMM (3.8-5.5); White Blood Count 14.7 T/CUMM (4-12)
[2017-03-18 07:14] LABS: Albumin 1.8 G/DL (3.4-5.0); Bilirubin,Total 0.7 MG/DL (0.2-1.0); Calcium 8.1 MG/DL (8.5-10.1); Magnesium 1.9 MG/DL (1.8-2.4); Osmolality,Calculated 294.1 MOS/KG (273-304); Potassium 2.9 MMOL/L (3.5-5.1); Total Protein 6.1 G/DL (6.4-8.3)
[2017-03-18 07:36] LABS: Band Neutrophils 2 % (0-10); Giant Platelets Few; Hypochromasia 1+; Lymphocytes 1 % (20-55); Microcytosis Slight; Platelet Estimate Normal; Segmented Neutrophils 96 % (50-85); Total Cells Counted 100
[2017-03-18] MEDS ORDERED: POTASSIUM CHLORIDE 20 MEQ/15 ML UDCUP PO ONE (08:30)
[2017-03-18] MEDS ORDERED: POTASSIUM CHLORIDE IV ONE (09:00)
[2017-03-18] MEDS ORDERED: SODIUM CHLORIDE 0.45% IV ONE (09:00)
[2017-03-18] MEDS: LEVOFLOXACIN INJ 750 MG in PREMIX 1 EACH IV SCH (09:36)
[2017-03-18] MEDS: ZINC OXIDE PASTE 113 GM TUBE TOP SCH (09:43)
[2017-03-18] MEDS: levETIRAcetam LIQUID 100 MG/ML 30 ML/BOTTLE PER TUBE SCH (09:45)
[2017-03-18] MEDS: amLODIPine 10 MG TABLET PEG SCH (09:45)
[2017-03-18] MEDS: DOCUSATE SODIUM 100 MG CAPSULE PEG SCH (09:45)
[2017-03-18] MEDS: APIXABAN 5 MG TABLET PER TUBE SCH (09:45)
[2017-03-18] MEDS: hydrALAZINE 25 MG TABLET PEG SCH (09:46)
[2017-03-18 11:53] VITALS: BP 147/73
== END 2017-03-18 16:00 | DRG 56 ==
LOC: EDUNIT# → N.ED 04:46 → N.EDINP 07:15 → SUATTDRO 07:15 → N.EDINP 08:08 → N.2E 08:25

== ENCOUNTER 2017-08-29 23:12 | Inpatient (IN) ==
[2017-08-30] MEDS ORDERED: PANTOPRAZOLE 40 MG VIAL IV STA (01:24)
[2017-08-30] MEDS ORDERED: SODIUM CHLORIDE 0.9% 500 ML IV STA (01:24)
[2017-08-30] MEDS ORDERED: ONDANSETRON 4 MG/2 ML VIAL IV STA (01:24)
[2017-08-30 01:34] LABS: Basophils % 0.4 % (0.0-0.8); Eosinophils # 0.4 10*3/uL (0.0-0.87); Eosinophils % 6.9 % (0.00-10.9); Hematocrit 38.1 VOL% (42.0-52.0); Hemoglobin 12.8 GM/DL (14.0-18.0); Immature Granulocytes % 0.6 %; Immature Granulocytes Absolute 0.03 #; Lymphocytes # 1.3 10*3/uL (1.4-4.0); Lymphocytes % 24.2 % (21.2-54.2); Mean Corpuscular HGB Conc 33.6 GM/DL (32-36); Mean Corpuscular Hemoglobin 31 PG (27-34); Mean Corpuscular Volume 90.9 FL (87-102); Mean Platelet Volume 10.2 FL (9.6-12.0); Monocytes # 0.7 10*3/uL (0.11-0.8); Monocytes % 13.3 % (1.7-12.7); Neutrophils # 2.9 10*3/uL (1.4-7.4); Neutrophils % 54.6 % (38.7-73.9); Platelet Count 200 T/CUMM (130-400); Red Blood Count 4.19 MC/CUMM (3.8-5.5); Red Cell Distribution Width 14.3 % (9.3-17.3); White Blood Count 5.3 T/CUMM (4-12)
[2017-08-30 01:42] LABS: INR 1.1; PT Patient Result 11.3 SECS
[2017-08-30 01:57] LABS: Alanine Aminotransferase 71 U/L (16-61); Albumin 2.8 G/DL (3.4-5.0); Alkaline Phosphatase 208 U/L (45-117); Aspartate Amino Transferase 35 U/L (0-37); Bilirubin,Total < 0.39 MG/DL (0.2-1.0); Blood Urea Nitrogen 16 MG/DL (7-18); Calcium 9.1 MG/DL (8.5-10.1); Glucose 82 MG/DL (74-106); Osmolality,Calculated 272.8 MOS/KG (273-304); Potassium 4.2 MMOL/L (3.5-5.1); Sodium 137 MMOL/L (136-145); Total Protein 7.4 G/DL (6.4-8.3); Troponin I Only < 0.015 NG/ML (0.00-0.045)
[2017-08-30 02:09] LABS: Ammonia 14 UMOL/L (11-32)
[2017-08-30] MEDS ORDERED: PANTOPRAZOLE 40 MG VIAL IV ONE (02:24)
[2017-08-30 02:33] LABS: Apearance,Urine CLEAR (Clear); Bilirubin,Urine Negative (Negative); Blood, Urine Negative (Negative); Glucose,Urine (UA) Negative (Negative); Ketones,Urine Negative (Negative); Nitrite,Urine Negative (Negative); Protein,Urine Negative; RBC,Urine 1 /HPF (0-4); Urine Color Yellow (Yellow); Urine Specific Gravity 1.009 (1.001-1.035); Urine Urobilinogen < 2.0 EU/DL (0.2-1.0); WBC,Urine 1 /HPF (0-6)
[2017-08-30] MEDS ORDERED: SODIUM CHLORIDE 0.9% 1,000 ML IV SCH (06:52)
[2017-08-30] MEDS ORDERED: ONDANSETRON 4 MG/2 ML VIAL IV PRN (06:52)
[2017-08-30 09:11] LABS: Hemoglobin 13.2 GM/DL (14.0-18.0)
[2017-08-30] MEDS ORDERED: SODIUM CHLORIDE 0.9% 500 ML IV ONE (10:09)
[2017-08-30] MEDS ORDERED: SODIUM CHLORIDE 0.9% 2,700 ML IV ONE (10:39)
[2017-08-30] MEDS: PANTOPRAZOLE 40 MG VIAL IV SCH ×2 (10:46→21:16)
[2017-08-30] MEDS: PIPERACILLIN/TAZOBACTAM 3,375 MG in SODIUM CHLORIDE 0.9% 100 ML IV SCH ×2 (10:54→17:36)
[2017-08-30 10:57] LABS: Hematocrit 35.6 VOL% (42.0-52.0); Hemoglobin 11.6 GM/DL (14.0-18.0)
[2017-08-30 11:21] LABS: Troponin I Only < 0.015 NG/ML (0.00-0.045)
[2017-08-30 11:32] LABS: Apearance,Urine CLOUDY (Clear); Bilirubin,Urine Negative (Negative); Blood, Urine Large mg/dL (Negative); Calcium Oxalate Crystals,Urine Few /HPF (Few); Glucose,Urine (UA) Negative (Negative); Ketones,Urine Negative (Negative); Mucus,Urine Occasional /LPF (Occasional); Nitrite,Urine Negative (Negative); Protein,Urine 100 MG/DL; RBC,Urine 504 /HPF (0-4); Urine Color Yellow (Yellow); Urine Specific Gravity 1.013 (1.001-1.035); Urine Urobilinogen < 2.0 EU/DL (0.2-1.0); WBC,Urine 88 /HPF (0-6)
[2017-08-30 11:57] LABS: Albumin 2.6 G/DL (3.4-5.0); Bilirubin,Total 0.4 MG/DL (0.2-1.0); Calcium 8.4 MG/DL (8.5-10.1); Osmolality,Calculated 281.4 MOS/KG (273-304); Potassium 4.4 MMOL/L (3.5-5.1); Total Protein 6.2 G/DL (6.4-8.3)
[2017-08-30 12:41] LABS: Basophils % 0.2 % (0.0-0.8); Eosinophils % 0.3 % (0.00-10.9); Hematocrit 35.4 VOL% (42.0-52.0); Hemoglobin 11.6 GM/DL (14.0-18.0); Immature Granulocytes % 0.4 %; Immature Granulocytes Absolute 0.04 #; Lymphocytes # 0.7 10*3/uL (1.4-4.0); Mean Corpuscular HGB Conc 32.8 GM/DL (32-36); Mean Corpuscular Hemoglobin 30 PG (27-34); Mean Corpuscular Volume 92.7 FL (87-102); Mean Platelet Volume 11.1 FL (9.6-12.0); Monocytes # 1.2 10*3/uL (0.11-0.8); Monocytes % 13.1 % (1.7-12.7); Neutrophils # 7.2 10*3/uL (1.4-7.4); Platelet Count 169 T/CUMM (130-400); Red Blood Count 3.82 MC/CUMM (3.8-5.5); Red Cell Distribution Width 14.6 % (9.3-17.3); White Blood Count 9.2 T/CUMM (4-12)
[2017-08-30] MEDS: VANCOMYCIN INJ 1,250 MG in SODIUM CHLORIDE 0.9% 250 ML IV SCH (13:32)
[2017-08-30] MEDS: SODIUM CHLORIDE 0.9% 1,000 ML IV SCH ×2 (13:33→21:49)
[2017-08-30] MEDS ORDERED: levETIRAcetam LIQUID 100 MG/ML 30 ML/BOTTLE PER TUBE SCH (21:00)
[2017-08-31] MEDS: VANCOMYCIN INJ 1,250 MG in SODIUM CHLORIDE 0.9% 250 ML IV SCH ×2 (00:13→12:33)
[2017-08-31 01:31] LABS: Albumin 2.1 G/DL (3.4-5.0); Bilirubin,Total 0.8 MG/DL (0.2-1.0); Calcium 8.2 MG/DL (8.5-10.1); Osmolality,Calculated 286.7 MOS/KG (273-304); Total Protein 5.9 G/DL (6.4-8.3)
[2017-08-31 01:32] LABS: Basophils % 0.5 % (0.0-0.8); Eosinophils # 0.2 10*3/uL (0.0-0.87); Eosinophils % 2.6 % (0.00-10.9); Hematocrit 31.1 VOL% (42.0-52.0); Hemoglobin 10.3 GM/DL (14.0-18.0); Immature Granulocytes % 0.3 %; Immature Granulocytes Absolute 0.02 #; Lymphocytes # 1.1 10*3/uL (1.4-4.0); Lymphocytes % 18.4 % (21.2-54.2); Mean Corpuscular HGB Conc 33.1 GM/DL (32-36); Mean Corpuscular Hemoglobin 31 PG (27-34); Mean Corpuscular Volume 92.6 FL (87-102); Mean Platelet Volume 11.2 FL (9.6-12.0); Monocytes % 16.6 % (1.7-12.7); Neutrophils # 3.6 10*3/uL (1.4-7.4); Neutrophils % 61.6 % (38.7-73.9); Platelet Count 161 T/CUMM (130-400); Red Blood Count 3.36 MC/CUMM (3.8-5.5); Red Cell Distribution Width 14.5 % (9.3-17.3); White Blood Count 5.8 T/CUMM (4-12)
[2017-08-31 02:07] LABS: Band Neutrophils 2 % (0-10); Eosinophils 1 % (0-10); Lymphocytes 15 % (20-55); Segmented Neutrophils 74 % (50-85); Total Cells Counted 100
[2017-08-31 02:08] LABS: Anisocytosis 1+; Platelet Estimate Normal
[2017-08-31] MEDS: PIPERACILLIN/TAZOBACTAM 3,375 MG in SODIUM CHLORIDE 0.9% 100 ML IV SCH ×3 (03:05→19:07)
[2017-08-31 06:59] LABS: Hematocrit 31.1 VOL% (42.0-52.0)
[2017-08-31] MEDS: SODIUM CHLORIDE 0.9% 1,000 ML IV SCH (07:20)
[2017-08-31] MEDS: PANTOPRAZOLE 40 MG VIAL IV SCH ×2 (08:35→20:32)
[2017-08-31] MEDS: LORATADINE 10 MG TABLET PEG SCH (09:54)
[2017-09-01] MEDS: VANCOMYCIN INJ 1,250 MG in SODIUM CHLORIDE 0.9% 250 ML IV SCH (01:18)
[2017-09-01] MEDS: PIPERACILLIN/TAZOBACTAM 3,375 MG in SODIUM CHLORIDE 0.9% 100 ML IV SCH (02:25)
[2017-09-01 04:48] LABS: Basophils % 0.9 % (0.0-0.8); Eosinophils # 0.3 10*3/uL (0.0-0.87); Eosinophils % 6.7 % (0.00-10.9); Hematocrit 32.4 VOL% (42.0-52.0); Hemoglobin 10.6 GM/DL (14.0-18.0); Immature Granulocytes % 0.2 %; Immature Granulocytes Absolute 0.01 #; Lymphocytes # 0.8 10*3/uL (1.4-4.0); Lymphocytes % 17.1 % (21.2-54.2); Mean Corpuscular HGB Conc 32.7 GM/DL (32-36); Mean Corpuscular Hemoglobin 30 PG (27-34); Mean Platelet Volume 11.2 FL (9.6-12.0); Monocytes # 0.8 10*3/uL (0.11-0.8); Monocytes % 18.2 % (1.7-12.7); Neutrophils # 2.6 10*3/uL (1.4-7.4); Neutrophils % 56.9 % (38.7-73.9); Platelet Count 171 T/CUMM (130-400); Red Blood Count 3.52 MC/CUMM (3.8-5.5); Red Cell Distribution Width 14.4 % (9.3-17.3); White Blood Count 4.5 T/CUMM (4-12)
[2017-09-01 05:14] LABS: Albumin 2.2 G/DL (3.4-5.0); Bilirubin,Total 0.5 MG/DL (0.2-1.0); Calcium 8.5 MG/DL (8.5-10.1); Osmolality,Calculated 285.8 MOS/KG (273-304); Potassium 3.3 MMOL/L (3.5-5.1); Total Protein 5.8 G/DL (6.4-8.3)
[2017-09-01 05:42] LABS: Atypical Lymphocytes Few; Eosinophils 3 % (0-10); Lymphocytes 19 % (20-55); Segmented Neutrophils 63 % (50-85); Total Cells Counted 100
[2017-09-01 05:43] LABS: Hypochromasia 1+
[2017-09-01 05:44] LABS: Microcytosis 1+; Platelet Estimate Adequate; Prealbumin 16.8 MG/DL (20-40)
[2017-09-01 07:56] VITALS: BP 93/62
[2017-09-01] MEDS: PANTOPRAZOLE 40 MG VIAL IV SCH (08:57)
[2017-09-01] MEDS: LORATADINE 10 MG TABLET PEG SCH (09:01)
== END 2017-09-01 11:32 | DRG 377 ==
LOC: EDUNIT# → EDBD → N.ED 23:12 → N.EDINP 08-30 04:52 → SUATTDRO 08-30 04:52 → N.3E 08-30 06:25 → N.ICU 08-30 08:29 → N.4E 08-31 14:48
PROVIDERS: ADMIT Internal Medicine; ATTEND Internal Medicine

== ENCOUNTER 2018-06-12 16:17 | Inpatient (IN) ==
[2018-06-12] MEDS ORDERED: PIPERACILLIN/TAZOBACTAM 3,375 MG in SODIUM CHLORIDE 0.9% 100 ML IV STA (16:57)
[2018-06-12] MEDS ORDERED: ACETAMINOPHEN 500 MG TABLET PO STA (16:57)
[2018-06-12] MEDS ORDERED: ALBUTEROL/IPRATROPIUM 3 ML NEB RESP TX STA (16:57)
[2018-06-12] MEDS ORDERED: SODIUM CHLORIDE 0.9% 500 ML IV STA (16:57)
[2018-06-12 17:51] LABS: Apearance,Urine CLOUDY (Clear); Bilirubin,Urine Negative (Negative); Blood, Urine Negative (Negative); Glucose,Urine (UA) Negative (Negative); Hyaline Casts,Urine 144 /LPF (0-3); Ketones,Urine Negative (Negative); Mucus,Urine Moderate /LPF (Occasional); Nitrite,Urine Negative (Negative); Protein,Urine Negative; RBC,Urine 18 /HPF (0-4); Urine Color Amber (Yellow); Urine Specific Gravity 1.018 (1.001-1.035); WBC,Urine 10 /HPF (0-6)
[2018-06-12] MEDS ORDERED: ACETAMINOPHEN 650 MG SUPP RECTAL ONE (18:00)
[2018-06-12] MEDS ORDERED: ACETAMINOPHEN 650 MG SUPP RECTAL STA (18:02)
[2018-06-12 19:07] LABS: Basophils % 0.2 % (0.0-0.8); Eosinophils % 0.1 % (0.00-10.9); Hematocrit 41.1 VOL% (42.0-52.0); Hemoglobin 13.1 GM/DL (14.0-18.0); Immature Granulocytes % 0.7 %; Immature Granulocytes Absolute 0.12 #; Lymphocytes # 0.6 10*3/uL (1.4-4.0); Lymphocytes % 3.5 % (21.2-54.2); Mean Corpuscular HGB Conc 31.9 GM/DL (32-36); Mean Corpuscular Hemoglobin 30 PG (27-34); Mean Corpuscular Volume 94.5 FL (87-102); Monocytes # 1.5 10*3/uL (0.11-0.8); Monocytes % 8.8 % (1.7-12.7); Neutrophils # 14.5 10*3/uL (1.4-7.4); Neutrophils % 86.7 % (38.7-73.9); Platelet Count 185 T/CUMM (130-400); Red Blood Count 4.35 MC/CUMM (3.8-5.5); Red Cell Distribution Width 14.9 % (9.3-17.3); White Blood Count 16.8 T/CUMM (4-12)
[2018-06-12 19:26] LABS: Alanine Aminotransferase 72 U/L (16-61); Albumin 2.8 G/DL (3.4-5.0); Alkaline Phosphatase 159 U/L (45-117); Amylase 158 U/L (25-115); Aspartate Amino Transferase 42 U/L (0-37); Blood Urea Nitrogen 33 MG/DL (7-18); Calcium 8.6 MG/DL (8.5-10.1); Glucose 111 MG/DL (74-106); Lipase < 50.0 U/L (73-393); Osmolality,Calculated 280.8 MOS/KG (273-304); Potassium 4.9 MMOL/L (3.5-5.1); Sodium 137 MMOL/L (136-145); Total Protein 8.1 G/DL (6.4-8.3)
[2018-06-12 19:52] LABS: Band Neutrophils 3 % (0-10); Eosinophils 1 % (0-10); Lymphocytes 4 % (20-55); Segmented Neutrophils 84 % (50-85)
[2018-06-12 19:53] LABS: Platelet Estimate Normal
[2018-06-12 19:54] LABS: Total Cells Counted 100
[2018-06-12 20:13] LABS: Sedimentation Rate-Westergren 49 MM/HR (0-20)
[2018-06-12] MEDS ORDERED: guaiFENesin/DM ER 600-30 MG TABLET PO PRN (20:44)
[2018-06-12] MEDS ORDERED: ENOXAPARIN 40 MG/0.4 ML SYRINGE SUBCUT SCH (21:00)
[2018-06-12] MEDS ORDERED: ACETAMINOPHEN 325 MG TABLET PEG PRN (21:17)
[2018-06-12] MEDS: SODIUM CHLORIDE 0.9% 1,000 ML IV SCH (23:02)
[2018-06-12] MEDS: CLINDAMYCIN INJ 900 MG in PREMIX 1 EACH IV SCH (23:06)
[2018-06-12] MEDS: levETIRAcetam LIQUID 100 MG/ML 30 ML/BOTTLE PER TUBE SCH (23:13)
[2018-06-12] MEDS: APIXABAN 5 MG TABLET PER TUBE SCH (23:18)
[2018-06-12] MEDS: DOCUSATE SODIUM 100 MG CAPSULE PEG SCH (23:19)
[2018-06-13 00:40] LABS: Basophils % 0.2 % (0.0-0.8); Hematocrit 41.1 VOL% (42.0-52.0); Hemoglobin 12.7 GM/DL (14.0-18.0); Immature Granulocytes % 0.5 %; Immature Granulocytes Absolute 0.09 #; Lymphocytes # 0.7 10*3/uL (1.4-4.0); Mean Corpuscular HGB Conc 30.9 GM/DL (32-36); Mean Corpuscular Hemoglobin 30 PG (27-34); Mean Corpuscular Volume 96.7 FL (87-102); Mean Platelet Volume 10.7 FL (9.6-12.0); Monocytes # 1.5 10*3/uL (0.11-0.8); Monocytes % 8.7 % (1.7-12.7); Neutrophils # 14.8 10*3/uL (1.4-7.4); Neutrophils % 86.6 % (38.7-73.9); Platelet Count 168 T/CUMM (130-400); Red Blood Count 4.25 MC/CUMM (3.8-5.5); White Blood Count 17.1 T/CUMM (4-12)
[2018-06-13 01:02] LABS: Calcium 8.4 MG/DL (8.5-10.1); Osmolality,Calculated 283.7 MOS/KG (273-304); Potassium 5.2 MMOL/L (3.5-5.1)
[2018-06-13 01:10] LABS: Band Neutrophils 5 % (0-10); Lymphocytes 4 % (20-55); Metamyelocytes 1 %; Segmented Neutrophils 78 % (50-85)
[2018-06-13 01:12] LABS: Platelet Estimate Normal; Total Cells Counted 100
[2018-06-13] MEDS: SODIUM CHLORIDE 0.9% 1,000 ML IV SCH ×2 (06:52→14:40)
[2018-06-13] MEDS: CLINDAMYCIN INJ 900 MG in PREMIX 1 EACH IV SCH (06:54)
[2018-06-13] MEDS: levETIRAcetam LIQUID 100 MG/ML 30 ML/BOTTLE PER TUBE SCH ×2 (09:00→20:58)
[2018-06-13] MEDS: MULTIVITAMIN LIQUID (CENTRUM) 60 ML BOTTLE PEG SCH (09:01)
[2018-06-13] MEDS: AMPICILLIN/SULBACTAM 3,000 MG in SODIUM CHLORIDE 0.9% 100 ML IV SCH ×3 (09:02→20:54)
[2018-06-13] MEDS: FOLIC ACID 1 MG TABLET PEG SCH (09:02)
[2018-06-13] MEDS: APIXABAN 5 MG TABLET PER TUBE SCH ×2 (09:03→20:54)
[2018-06-13] MEDS: DOCUSATE SODIUM 100 MG CAPSULE PEG SCH ×2 (09:03→20:55)
[2018-06-13] MEDS: FERROUS SULFATE 300 MG/5 ML UDCUP PEG SCH (09:03)
[2018-06-13] MEDS: PANTOPRAZOLE 40 MG TABLET PO SCH (09:03)
[2018-06-13] MEDS: LORATADINE 10 MG TABLET PEG SCH (09:04)
[2018-06-13] MEDS: LISINOPRIL 10 MG TABLET PEG SCH (10:46)
[2018-06-13] MEDS: POTASSIUM CHLORIDE 20 MEQ/15 ML UDCUP PEG SCH (10:46)
[2018-06-14] MEDS: SODIUM CHLORIDE 0.9% 1,000 ML IV SCH ×3 (01:13→17:03)
[2018-06-14] MEDS: AMPICILLIN/SULBACTAM 3,000 MG in SODIUM CHLORIDE 0.9% 100 ML IV SCH ×4 (03:26→20:37)
[2018-06-14 05:14] LABS: Basophils % 0.4 % (0.0-0.8); Eosinophils # 0.1 10*3/uL (0.0-0.87); Eosinophils % 1.9 % (0.00-10.9); Hematocrit 35.8 VOL% (42.0-52.0); Hemoglobin 11.3 GM/DL (14.0-18.0); Immature Granulocytes % 0.3 %; Immature Granulocytes Absolute 0.02 #; Lymphocytes # 0.8 10*3/uL (1.4-4.0); Mean Corpuscular HGB Conc 31.6 GM/DL (32-36); Mean Corpuscular Hemoglobin 30 PG (27-34); Mean Corpuscular Volume 95.2 FL (87-102); Monocytes # 0.9 10*3/uL (0.11-0.8); Monocytes % 12.3 % (1.7-12.7); Neutrophils # 5.1 10*3/uL (1.4-7.4); Neutrophils % 73.1 % (38.7-73.9); Platelet Count 119 T/CUMM (130-400); Red Blood Count 3.76 MC/CUMM (3.8-5.5); Red Cell Distribution Width 15.5 % (9.3-17.3)
[2018-06-14 05:25] LABS: Calcium 8.1 MG/DL (8.5-10.1); Osmolality,Calculated 282.3 MOS/KG (273-304); Potassium 4.5 MMOL/L (3.5-5.1)
[2018-06-14] MEDS: LISINOPRIL 10 MG TABLET PEG SCH (09:03)
[2018-06-14] MEDS: DOCUSATE SODIUM 100 MG CAPSULE PEG SCH ×2 (09:06→20:34)
[2018-06-14] MEDS: FOLIC ACID 1 MG TABLET PEG SCH (09:06)
[2018-06-14] MEDS: PANTOPRAZOLE 40 MG TABLET PO SCH (09:07)
[2018-06-14] MEDS: APIXABAN 5 MG TABLET PER TUBE SCH ×2 (09:07→20:34)
[2018-06-14] MEDS: FERROUS SULFATE 300 MG/5 ML UDCUP PEG SCH (09:07)
[2018-06-14] MEDS: POTASSIUM CHLORIDE 20 MEQ/15 ML UDCUP PEG SCH (09:08)
[2018-06-14] MEDS: levETIRAcetam LIQUID 100 MG/ML 30 ML/BOTTLE PER TUBE SCH ×2 (09:08→20:36)
[2018-06-14] MEDS: LORATADINE 10 MG TABLET PEG SCH (09:10)
[2018-06-14] MEDS: MULTIVITAMIN LIQUID (CENTRUM) 60 ML BOTTLE PEG SCH (09:20)
[2018-06-15] MEDS: AMPICILLIN/SULBACTAM 3,000 MG in SODIUM CHLORIDE 0.9% 100 ML IV SCH ×2 (02:12→09:30)
[2018-06-15] MEDS: SODIUM CHLORIDE 0.9% 1,000 ML IV SCH ×3 (02:14→10:45)
[2018-06-15 08:25] LABS: Basophils % 0.4 % (0.0-0.8); Eosinophils # 0.1 10*3/uL (0.0-0.87); Eosinophils % 1.6 % (0.00-10.9); Hematocrit 36.5 VOL% (42.0-52.0); Hemoglobin 11.4 GM/DL (14.0-18.0); Immature Granulocytes % 0.4 %; Immature Granulocytes Absolute 0.02 #; Lymphocytes # 0.6 10*3/uL (1.4-4.0); Lymphocytes % 11.3 % (21.2-54.2); Mean Corpuscular HGB Conc 31.2 GM/DL (32-36); Mean Corpuscular Hemoglobin 30 PG (27-34); Mean Corpuscular Volume 95.8 FL (87-102); Monocytes # 0.6 10*3/uL (0.11-0.8); Monocytes % 13.1 % (1.7-12.7); Neutrophils # 3.6 10*3/uL (1.4-7.4); Neutrophils % 73.2 % (38.7-73.9); Platelet Count 144 T/CUMM (130-400); Red Blood Count 3.81 MC/CUMM (3.8-5.5); Red Cell Distribution Width 14.8 % (9.3-17.3); White Blood Count 4.9 T/CUMM (4-12)
[2018-06-15] MEDS ORDERED: DOCUSATE SODIUM 100 MG/10 ML UDCUP PEG SCH (09:00)
[2018-06-15] MEDS ORDERED: LANSOPRAZOLE ODT 30 MG TABLET PEG SCH (09:00)
[2018-06-15] MEDS: POTASSIUM CHLORIDE 20 MEQ/15 ML UDCUP PEG SCH (09:32)
[2018-06-15] MEDS: LORATADINE 10 MG TABLET PEG SCH (09:32)
[2018-06-15] MEDS: FOLIC ACID 1 MG TABLET PEG SCH (09:32)
[2018-06-15] MEDS: FERROUS SULFATE 300 MG/5 ML UDCUP PEG SCH (09:32)
[2018-06-15] MEDS: MULTIVITAMIN LIQUID (CENTRUM) 60 ML BOTTLE PEG SCH (09:33)
[2018-06-15] MEDS: APIXABAN 5 MG TABLET PER TUBE SCH (09:33)
[2018-06-15] MEDS: levETIRAcetam LIQUID 100 MG/ML 30 ML/BOTTLE PER TUBE SCH (09:34)
[2018-06-15] MEDS: LISINOPRIL 10 MG TABLET PEG SCH (09:41)
[2018-06-15 12:36] VITALS: BP 169/98
== END 2018-06-15 13:38 | DRG 177 ==
LOC: EDUNIT# → EDBD → N.ED 16:17 → N.EDINP 20:44 → N.5E 21:17
PROVIDERS: ADMIT Internal Medicine Geriatric Medicine; ATTEND Internal Medicine Geriatric Medicine

== ENCOUNTER 2018-07-26 12:49 | Inpatient (IN) ==
[2018-07-26] MEDS ORDERED: FUROSEMIDE 100 MG/10 ML VIAL ONE (12:51)
[2018-07-26] MEDS ORDERED: TERBUTALINE 1 MG/1 ML VIAL SUBCUT ONE (12:54)
[2018-07-26] MEDS: TERBUTALINE 1 MG/1 ML VIAL SUBCUT SCH ×2 (12:56→13:26)
[2018-07-26] MEDS ORDERED: VANCOMYCIN INJ 1,000 MG in SODIUM CHLORIDE 0.9% 250 ML IV STA (13:01)
[2018-07-26] MEDS ORDERED: methylPREDNISolone SOD SUC 125 MG/2 ML VIAL IV STA (13:01)
[2018-07-26 13:14] LABS: Basophils % 0.2 % (0.0-0.8); Hematocrit 33.1 VOL% (42.0-52.0); Hemoglobin 10.3 GM/DL (14.0-18.0); Immature Granulocytes Absolute 0.13 #; Lymphocytes # 0.4 10*3/uL (1.4-4.0); Lymphocytes % 3.3 % (21.2-54.2); Mean Corpuscular HGB Conc 31.1 GM/DL (32-36); Mean Corpuscular Volume 89.9 FL (87-102); Mean Platelet Volume 12.5 FL (9.6-12.0); Monocytes % 12.4 % (1.7-12.7); Neutrophils % 83.1 % (38.7-73.9); Platelet Count 121 T/CUMM (130-400); Red Blood Count 3.68 MC/CUMM (3.8-5.5); Red Cell Distribution Width 16.8 % (9.3-17.3); White Blood Count 12.8 T/CUMM (4-12)
[2018-07-26] MEDS ORDERED: NOREPINEPHRINE 4 MG/4 ML VIAL IV ONE ×2 (13:18→13:19)
[2018-07-26] MEDS ORDERED: SODIUM CHLORIDE 0.9% 250 ML IV ONE (13:19)
[2018-07-26 13:28] LABS: INR 1.4; PT Patient Result 14.7 SECS
[2018-07-26] MEDS ORDERED: ALBUTEROL 2.5 MG/3 ML NEB RESP TX SCH (13:30)
[2018-07-26 13:38] LABS: Alanine Aminotransferase 84 U/L (16-61); Albumin 1.7 G/DL (3.4-5.0); Alkaline Phosphatase 106 U/L (45-117); Aspartate Amino Transferase 71 U/L (0-37); Blood Urea Nitrogen 141 MG/DL (7-18); Calcium 8.8 MG/DL (8.5-10.1); Glucose 202 MG/DL (74-106); Total Protein 7.6 G/DL (6.4-8.3); Troponin I 0.018 NG/ML (0.00-0.045)
[2018-07-26] MEDS ORDERED: SODIUM CHLORIDE 0.9% 1,000 ML IV STA ×2 (13:40→14:21)
[2018-07-26 13:50] LABS: Amorphous Crystals,Urine Occasional /HPF (Few); Apearance,Urine CLOUDY (Clear); Bacteria,Urine Occasional /HPF (Few); Bilirubin,Urine Negative (Negative); Blood, Urine Small mg/dL (Negative); Glucose,Urine (UA) Negative (Negative); Ketones,Urine Negative (Negative); Mucus,Urine Occasional /LPF (Occasional); Nitrite,Urine Negative (Negative); Protein,Urine 100 MG/DL; RBC,Urine 135 /HPF (0-4); Urine Color Amber (Yellow); Urine Specific Gravity 1.015 (1.001-1.035); Urine Urobilinogen < 2.0 EU/DL (0.2-1.0); WBC,Urine 12 /HPF (0-6)
[2018-07-26] MEDS ORDERED: ONDANSETRON 4 MG/2 ML VIAL IV STA (14:09)
[2018-07-26 14:13] LABS: Band Neutrophils 9 % (0-10); Hypochromasia 1+; Lymphocytes 1 % (20-55); Segmented Neutrophils 76 % (50-85); Tear Drop Cells Slight
[2018-07-26 14:14] LABS: Microcytosis Slight; Total Cells Counted 100
[2018-07-26] MEDS ORDERED: PIPERACILLIN/TAZOBACTAM 3,375 MG in SODIUM CHLORIDE 0.9% 100 ML IV STA (14:31)
[2018-07-26] MEDS ORDERED: FUROSEMIDE 40 MG/4 ML VIAL IV STA (15:30)
[2018-07-26] MEDS: metroNIDAZOLE INJ 500 MG in PREMIX 1 EACH IV SCH (18:22)
[2018-07-26] MEDS: LACTATED RINGERS 1,000 ML IV SCH (18:22)
[2018-07-26] MEDS: cefTRIAXone 1,000 MG in SYRINGE 1 EACH IV SCH (18:40)
[2018-07-27 02:02] LABS: Basophils % 0.1 % (0.0-0.8); Hematocrit 29.4 VOL% (42.0-52.0); Hemoglobin 9.1 GM/DL (14.0-18.0); Immature Granulocytes Absolute 0.11 #; Lymphocytes # 0.2 10*3/uL (1.4-4.0); Lymphocytes % 2.1 % (21.2-54.2); Mean Corpuscular Volume 90.5 FL (87-102); Mean Platelet Volume 11.9 FL (9.6-12.0); Monocytes % 4.3 % (1.7-12.7); Neutrophils % 92.5 % (38.7-73.9); Platelet Count 111 T/CUMM (130-400); Red Blood Count 3.25 MC/CUMM (3.8-5.5); Red Cell Distribution Width 16.7 % (9.3-17.3)
[2018-07-27 02:25] LABS: Calcium 8.7 MG/DL (8.5-10.1); Osmolality,Calculated 341.7 MOS/KG (273-304)
[2018-07-27 02:26] LABS: Band Neutrophils 10 % (0-10); Lymphocytes 1 % (20-55); Segmented Neutrophils 85 % (50-85); Total Cells Counted 100
[2018-07-27 02:27] LABS: Anisocytosis 1+; Platelet Estimate Adequate
[2018-07-27] MEDS: metroNIDAZOLE INJ 500 MG in PREMIX 1 EACH IV SCH ×4 (02:28→19:16)
[2018-07-27] MEDS: LACTATED RINGERS 1,000 ML IV SCH ×2 (02:28→15:06)
[2018-07-27] MEDS: VANCOMYCIN INJ 1,500 MG in SODIUM CHLORIDE 0.9% 500 ML IV SCH (14:34)
[2018-07-27] MEDS: PANTOPRAZOLE 40 MG TABLET PO SCH (16:49)
[2018-07-27] MEDS: DEXTROSE 5% 1,000 ML IV SCH (16:49)
[2018-07-27] MEDS: FOLIC ACID 1 MG TABLET PEG SCH (16:49)
[2018-07-27] MEDS: cefTRIAXone 1,000 MG in SYRINGE 1 EACH IV SCH (18:31)
[2018-07-27] MEDS: ALBUTEROL/IPRATROPIUM 3 ML NEB RESP TX SCH ×2 (20:26→23:37)
[2018-07-27] MEDS: levETIRAcetam LIQUID 100 MG/ML 30 ML/BOTTLE PEG SCH (21:38)
[2018-07-27] MEDS: APIXABAN 5 MG TABLET PEG SCH (21:38)
[2018-07-28] MEDS: metroNIDAZOLE INJ 500 MG in PREMIX 1 EACH IV SCH ×3 (01:55→10:13)
[2018-07-28 02:43] LABS: Basophils % 0.1 % (0.0-0.8); Hemoglobin 9.5 GM/DL (14.0-18.0); Immature Granulocytes Absolute 0.15 #; Lymphocytes # 0.4 10*3/uL (1.4-4.0); Lymphocytes % 2.3 % (21.2-54.2); Mean Corpuscular HGB Conc 31.7 GM/DL (32-36); Mean Corpuscular Volume 90.4 FL (87-102); Mean Platelet Volume 12.2 FL (9.6-12.0); Monocytes % 5.8 % (1.7-12.7); Neutrophils % 90.8 % (38.7-73.9); Platelet Count 144 T/CUMM (130-400); Red Blood Count 3.32 MC/CUMM (3.8-5.5); Red Cell Distribution Width 16.9 % (9.3-17.3); White Blood Count 15.1 T/CUMM (4-12)
[2018-07-28] MEDS: ALBUTEROL/IPRATROPIUM 3 ML NEB RESP TX SCH ×6 (04:08→23:07)
[2018-07-28 04:19] LABS: Band Neutrophils 1 % (0-10); Lymphocytes 1 % (20-55); Segmented Neutrophils 95 % (50-85); Total Cells Counted 100
[2018-07-28 04:20] LABS: Anisocytosis Slight; Microcytosis Slight; Target Cells Few
[2018-07-28 04:25] LABS: Platelet Estimate Normal
[2018-07-28] MEDS: DEXTROSE 5% 1,000 ML IV SCH ×3 (08:35→21:29)
[2018-07-28] MEDS: PANTOPRAZOLE 40 MG TABLET PO SCH (08:35)
[2018-07-28] MEDS: APIXABAN 5 MG TABLET PEG SCH ×2 (08:35→21:26)
[2018-07-28] MEDS: FOLIC ACID 1 MG TABLET PEG SCH (08:35)
[2018-07-28 08:43] LABS: Calcium 8.5 MG/DL (8.5-10.1); Osmolality,Calculated 349.7 MOS/KG (273-304)
[2018-07-28] MEDS: levETIRAcetam LIQUID 100 MG/ML 30 ML/BOTTLE PEG SCH ×2 (09:00→21:28)
[2018-07-28 10:42] LABS: Calcium 8.1 MG/DL (8.5-10.1); Osmolality,Calculated 354.5 MOS/KG (273-304)
[2018-07-28] MEDS ORDERED: GLUCAGON 1 MG VIAL IM PRN (12:53)
[2018-07-28] MEDS ORDERED: DEXTROSE 50% 25 GM/50 ML VIAL IV PRN (12:53)
[2018-07-28] MEDS: INSULIN REGULAR 100 UNIT/ML SUBCUT SCH ×3 (14:14→23:39)
[2018-07-28] MEDS: VANCOMYCIN INJ 1,500 MG in SODIUM CHLORIDE 0.9% 500 ML IV SCH (14:48)
[2018-07-28] MEDS: INSULIN GLARGINE 100 UNIT/ML SUBCUT SCH (16:04)
[2018-07-28] MEDS: PIPERACILLIN/TAZOBACTAM 3,375 MG in SODIUM CHLORIDE 0.9% 100 ML IV SCH ×2 (21:04→21:29)
[2018-07-29] MEDS: ALBUTEROL/IPRATROPIUM 3 ML NEB RESP TX SCH ×6 (02:06→23:04)
[2018-07-29 03:07] LABS: Basophils % 0.1 % (0.0-0.8); Eosinophils % 0.1 % (0.00-10.9); Hematocrit 30.2 VOL% (42.0-52.0); Hemoglobin 9.4 GM/DL (14.0-18.0); Immature Granulocytes % 1.4 %; Immature Granulocytes Absolute 0.18 #; Lymphocytes # 0.7 10*3/uL (1.4-4.0); Lymphocytes % 5.2 % (21.2-54.2); Mean Corpuscular HGB Conc 31.1 GM/DL (32-36); Mean Corpuscular Volume 90.7 FL (87-102); Mean Platelet Volume 12.5 FL (9.6-12.0); Monocytes % 5.2 % (1.7-12.7); NRBC # 0.02 10*3/uL; Platelet Count 165 T/CUMM (130-400); Red Blood Count 3.33 MC/CUMM (3.8-5.5); Red Cell Distribution Width 17.1 % (9.3-17.3); White Blood Count 12.8 T/CUMM (4-12)
[2018-07-29 03:42] LABS: Albumin 1.4 G/DL (3.4-5.0); Bilirubin,Total 0.8 MG/DL (0.2-1.0); Calcium 8.1 MG/DL (8.5-10.1); Osmolality,Calculated 333.7 MOS/KG (273-304); Total Protein 6.1 G/DL (6.4-8.3)
[2018-07-29] MEDS: INSULIN REGULAR 100 UNIT/ML SUBCUT SCH ×4 (05:23→23:54)
[2018-07-29] MEDS: PIPERACILLIN/TAZOBACTAM 3,375 MG in SODIUM CHLORIDE 0.9% 100 ML IV SCH ×3 (06:06→21:30)
[2018-07-29] MEDS: levETIRAcetam LIQUID 100 MG/ML 30 ML/BOTTLE PEG SCH ×2 (08:20→21:31)
[2018-07-29] MEDS: APIXABAN 5 MG TABLET PEG SCH ×2 (08:20→21:29)
[2018-07-29] MEDS: PANTOPRAZOLE 40 MG TABLET PO SCH (08:20)
[2018-07-29] MEDS: FOLIC ACID 1 MG TABLET PEG SCH (08:20)
[2018-07-29] MEDS: INSULIN GLARGINE 100 UNIT/ML SUBCUT SCH (08:21)
[2018-07-29] MEDS: DEXTROSE 5% 1,000 ML IV SCH ×4 (09:45→23:27)
[2018-07-29] MEDS: VANCOMYCIN INJ 1,500 MG in SODIUM CHLORIDE 0.9% 500 ML IV SCH (15:02)
[2018-07-29 16:29] LABS: Amorphous Crystals,Urine Occasional /HPF (Few); Apearance,Urine Slightly Hazy (Clear); Bacteria,Urine Occasional /HPF (Few); Bilirubin,Urine Negative (Negative); Blood, Urine Moderate mg/dL (Negative); Glucose,Urine (UA) Negative (Negative); Granular Casts,Urine 3 /LPF (0-1); Ketones,Urine Negative (Negative); Nitrite,Urine Negative (Negative); Protein,Urine 30 MG/DL; RBC,Urine 24 /HPF (0-4); Squamous Epithelial Cell,Urine Occasional /HPF (0-10); Urine Color Yellow (Yellow); Urine Specific Gravity 1.016 (1.001-1.035); Urine Urobilinogen < 2.0 EU/DL (0.2-1.0); WBC,Urine 35 /HPF (0-6)
[2018-07-29 17:11] LABS: Calcium 7.8 MG/DL (8.5-10.1); Osmolality,Calculated 317.9 MOS/KG (273-304)
[2018-07-30] MEDS: ALBUTEROL/IPRATROPIUM 3 ML NEB RESP TX SCH ×6 (03:50→23:49)
[2018-07-30 04:47] LABS: Basophils % 0.1 % (0.0-0.8); Eosinophils # 0.2 10*3/uL (0.0-0.87); Eosinophils % 1.5 % (0.00-10.9); Hematocrit 27.4 VOL% (42.0-52.0); Hemoglobin 8.6 GM/DL (14.0-18.0); Immature Granulocytes % 1.8 %; Immature Granulocytes Absolute 0.28 #; Lymphocytes # 0.8 10*3/uL (1.4-4.0); Lymphocytes % 5.1 % (21.2-54.2); Mean Corpuscular HGB Conc 31.4 GM/DL (32-36); Mean Corpuscular Volume 89.5 FL (87-102); Mean Platelet Volume 12.3 FL (9.6-12.0); Monocytes % 3.6 % (1.7-12.7); NRBC # 0.05 10*3/uL; Neutrophils % 87.9 % (38.7-73.9); Platelet Count 161 T/CUMM (130-400); Red Blood Count 3.06 MC/CUMM (3.8-5.5); Red Cell Distribution Width 17.2 % (9.3-17.3); White Blood Count 15.6 T/CUMM (4-12)
[2018-07-30 05:09] LABS: Calcium 7.7 MG/DL (8.5-10.1); Osmolality,Calculated 308.3 MOS/KG (273-304); Prealbumin 6.3 MG/DL (20-40)
[2018-07-30] MEDS: INSULIN REGULAR 100 UNIT/ML SUBCUT SCH ×3 (05:55→18:09)
[2018-07-30] MEDS: PIPERACILLIN/TAZOBACTAM 3,375 MG in SODIUM CHLORIDE 0.9% 100 ML IV SCH ×2 (06:00→18:13)
[2018-07-30] MEDS: APIXABAN 5 MG TABLET PEG SCH ×2 (09:44→20:55)
[2018-07-30] MEDS: PANTOPRAZOLE 40 MG TABLET PO SCH (09:44)
[2018-07-30] MEDS: INSULIN GLARGINE 100 UNIT/ML SUBCUT SCH (09:45)
[2018-07-30] MEDS: FOLIC ACID 1 MG TABLET PEG SCH (09:45)
[2018-07-30] MEDS: levETIRAcetam LIQUID 100 MG/ML 30 ML/BOTTLE PEG SCH ×2 (09:48→20:55)
[2018-07-30] MEDS: DEXTROSE 5% 1,000 ML IV SCH ×3 (10:36→23:28)
[2018-07-30] MEDS: VANCOMYCIN INJ 1,500 MG in SODIUM CHLORIDE 0.9% 500 ML IV SCH (13:56)
[2018-07-31] MEDS: INSULIN REGULAR 100 UNIT/ML SUBCUT SCH ×4 (00:34→18:42)
[2018-07-31] MEDS: PIPERACILLIN/TAZOBACTAM 3,375 MG in SODIUM CHLORIDE 0.9% 100 ML IV SCH ×3 (01:29→20:23)
[2018-07-31] MEDS: ALBUTEROL/IPRATROPIUM 3 ML NEB RESP TX SCH ×6 (03:56→23:30)
[2018-07-31 04:58] LABS: Basophils % 0.1 % (0.0-0.8); Eosinophils # 0.3 10*3/uL (0.0-0.87); Eosinophils % 2.1 % (0.00-10.9); Hematocrit 24.8 VOL% (42.0-52.0); Hemoglobin 7.8 GM/DL (14.0-18.0); Immature Granulocytes % 2.8 %; Immature Granulocytes Absolute 0.39 #; Lymphocytes % 7.4 % (21.2-54.2); Mean Corpuscular HGB Conc 31.5 GM/DL (32-36); Mean Corpuscular Volume 89.2 FL (87-102); Mean Platelet Volume 11.9 FL (9.6-12.0); Monocytes % 3.1 % (1.7-12.7); NRBC # 0.06 10*3/uL; Neutrophils % 84.5 % (38.7-73.9); Platelet Count 170 T/CUMM (130-400); Red Blood Count 2.78 MC/CUMM (3.8-5.5); Red Cell Distribution Width 17.1 % (9.3-17.3)
[2018-07-31 05:16] LABS: Calcium 7.4 MG/DL (8.5-10.1)
[2018-07-31] MEDS: DEXTROSE 5% 1,000 ML IV SCH ×3 (06:17→16:00)
[2018-07-31] MEDS: APIXABAN 5 MG TABLET PEG SCH (09:00)
[2018-07-31] MEDS: levETIRAcetam LIQUID 100 MG/ML 30 ML/BOTTLE PEG SCH ×2 (09:10→20:23)
[2018-07-31] MEDS: PANTOPRAZOLE 40 MG TABLET PO SCH (09:10)
[2018-07-31] MEDS: FOLIC ACID 1 MG TABLET PEG SCH (09:10)
[2018-07-31] MEDS: INSULIN GLARGINE 100 UNIT/ML SUBCUT SCH (10:45)
[2018-07-31] MEDS: VANCOMYCIN INJ 1,500 MG in SODIUM CHLORIDE 0.9% 500 ML IV SCH (17:25)
[2018-08-01] MEDS ORDERED: ENOXAPARIN 40 MG/0.4 ML SYRINGE SUBCUT ONE (00:18)
[2018-08-01] MEDS: INSULIN REGULAR 100 UNIT/ML SUBCUT SCH ×4 (00:47→20:22)
[2018-08-01] MEDS: PIPERACILLIN/TAZOBACTAM 3,375 MG in SODIUM CHLORIDE 0.9% 100 ML IV SCH (03:13)
[2018-08-01] MEDS: DEXTROSE 5% 1,000 ML IV SCH ×2 (03:21→05:41)
[2018-08-01] MEDS: ALBUTEROL/IPRATROPIUM 3 ML NEB RESP TX SCH ×5 (03:32→20:06)
[2018-08-01 05:07] LABS: Basophils % 0.2 % (0.0-0.8); Eosinophils # 0.2 10*3/uL (0.0-0.87); Eosinophils % 1.8 % (0.00-10.9); Hemoglobin 7.8 GM/DL (14.0-18.0); Immature Granulocytes % 4.4 %; Immature Granulocytes Absolute 0.57 #; Lymphocytes # 0.9 10*3/uL (1.4-4.0); Lymphocytes % 6.9 % (21.2-54.2); Mean Corpuscular HGB Conc 31.2 GM/DL (32-36); Mean Corpuscular Volume 88.7 FL (87-102); Mean Platelet Volume 12.2 FL (9.6-12.0); Monocytes % 3.6 % (1.7-12.7); NRBC # 0.03 10*3/uL; Neutrophils % 83.1 % (38.7-73.9); Platelet Count 198 T/CUMM (130-400); Red Blood Count 2.82 MC/CUMM (3.8-5.5)
[2018-08-01 06:26] LABS: Eosinophils 2 % (0-10); Lymphocytes 4 % (20-55); Nucleated Red Blood Cells 1 (0-5); Platelet Estimate Adequate; Segmented Neutrophils 91 % (50-85); Total Cells Counted 100
[2018-08-01] MEDS: levETIRAcetam LIQUID 100 MG/ML 30 ML/BOTTLE PEG SCH ×2 (09:26→22:19)
[2018-08-01] MEDS: PANTOPRAZOLE 40 MG TABLET PO SCH (09:27)
[2018-08-01] MEDS: INSULIN GLARGINE 100 UNIT/ML SUBCUT SCH (09:27)
[2018-08-01] MEDS: FOLIC ACID 1 MG TABLET PEG SCH (09:27)
[2018-08-01] MEDS: LEVOFLOXACIN INJ 750 MG in PREMIX 1 EACH IV SCH (09:27)
[2018-08-01] MEDS ORDERED: TOBRAMYCIN IV ONE (10:00)
[2018-08-01] MEDS ORDERED: SODIUM CHLORIDE 0.9% IV ONE (10:00)
[2018-08-01] MEDS: VANCOMYCIN INJ 1,500 MG in SODIUM CHLORIDE 0.9% 500 ML IV SCH (17:05)
[2018-08-01] MEDS: ZINC OXIDE 16% PASTE 57 GM TUBE TOP SCH (22:19)
[2018-08-02] MEDS: ALBUTEROL/IPRATROPIUM 3 ML NEB RESP TX SCH ×7 (00:02→23:20)
[2018-08-02] MEDS: DEXTROSE 5% 1,000 ML IV SCH ×3 (00:04→12:54)
[2018-08-02] MEDS: INSULIN REGULAR 100 UNIT/ML SUBCUT SCH ×4 (00:44→18:13)
[2018-08-02 04:54] LABS: Calcium 7.9 MG/DL (8.5-10.1)
[2018-08-02] MEDS ORDERED: ALBUTEROL/IPRATROPIUM 3 ML NEB RESP TX ONE (09:59)
[2018-08-02] MEDS ORDERED: PROPOFOL 200 MG/20 ML VIAL IV ONE (10:35)
[2018-08-02] MEDS ORDERED: ETOMIDATE 40 MG/20 ML VIAL IV ONE (10:36)
[2018-08-02] MEDS ORDERED: DEXAMETHASONE 4 MG/1 ML VIAL ONE (10:36)
[2018-08-02] MEDS ORDERED: ONDANSETRON 4 MG/2 ML VIAL ONE (10:36)
[2018-08-02 11:40] LABS: Basophils % 0.1 % (0.0-0.8); Eosinophils # 0.2 10*3/uL (0.0-0.87); Eosinophils % 1.5 % (0.00-10.9); Hematocrit 26.2 VOL% (42.0-52.0); Hemoglobin 8.1 GM/DL (14.0-18.0); Immature Granulocytes % 4.2 %; Immature Granulocytes Absolute 0.44 #; Lymphocytes # 0.8 10*3/uL (1.4-4.0); Lymphocytes % 7.3 % (21.2-54.2); Mean Corpuscular HGB Conc 30.9 GM/DL (32-36); Mean Corpuscular Volume 90.7 FL (87-102); Mean Platelet Volume 13.1 FL (9.6-12.0); Monocytes % 5.1 % (1.7-12.7); NRBC # 0.04 10*3/uL; Neutrophils % 81.8 % (38.7-73.9); Platelet Count 169 T/CUMM (130-400); Red Blood Count 2.89 MC/CUMM (3.8-5.5); Red Cell Distribution Width 17.2 % (9.3-17.3); White Blood Count 10.5 T/CUMM (4-12)
[2018-08-02] MEDS: FOLIC ACID 1 MG TABLET PEG SCH (12:23)
[2018-08-02] MEDS: PANTOPRAZOLE 40 MG TABLET PO SCH (12:23)
[2018-08-02] MEDS: levETIRAcetam LIQUID 100 MG/ML 30 ML/BOTTLE PEG SCH ×2 (12:24→21:29)
[2018-08-02] MEDS: LEVOFLOXACIN INJ 750 MG in PREMIX 1 EACH IV SCH (12:24)
[2018-08-02] MEDS: INSULIN GLARGINE 100 UNIT/ML SUBCUT SCH (12:24)
[2018-08-02] MEDS: ZINC OXIDE 16% PASTE 57 GM TUBE TOP SCH ×2 (12:25→21:44)
[2018-08-02] MEDS: VANCOMYCIN INJ 1,500 MG in SODIUM CHLORIDE 0.9% 500 ML IV SCH (17:33)
[2018-08-03] MEDS: INSULIN REGULAR 100 UNIT/ML SUBCUT SCH ×3 (00:17→13:35)
[2018-08-03] MEDS: ALBUTEROL/IPRATROPIUM 3 ML NEB RESP TX SCH ×4 (03:45→15:40)
[2018-08-03] MEDS: LEVOFLOXACIN INJ 750 MG in PREMIX 1 EACH IV SCH ×2 (10:14→14:17)
[2018-08-03] MEDS: FOLIC ACID 1 MG TABLET PEG SCH (10:17)
[2018-08-03] MEDS: PANTOPRAZOLE 40 MG TABLET PO SCH (10:18)
[2018-08-03] MEDS: levETIRAcetam LIQUID 100 MG/ML 30 ML/BOTTLE PEG SCH (10:19)
[2018-08-03] MEDS ORDERED: LEVOFLOXACIN 750 MG TABLET PO SCH (13:00)
[2018-08-03] MEDS: ZINC OXIDE 16% PASTE 57 GM TUBE TOP SCH (13:34)
[2018-08-03 16:09] VITALS: BP 125/68
== END 2018-08-03 16:05 | DRG 871 ==
LOC: EDUNIT# → EDBD → N.ED 12:49 → N.EDINP 16:59 → SUATTDRO 16:59 → N.5E 18:40
PROVIDERS: ADMIT Internal Medicine; ATTEND Family Medicine